=== PATIENT | female | born 1950 | race Caucasian/White ===

== ENCOUNTER → 2016-11-20 | Outpatient (CLI) | payer MEDICARE, OTHER ==
--- NOTE | 2016-11-25 12:16 | MR ---
EXAMINATION TYPE: MR brain wo/w con DATE OF EXAM: 11/20/2016 COMPARISON: Prior brain MRI 10/09/2016 from outside institution HISTORY: Malignant neoplasm of parietal lobe TECHNIQUE: Multiplanar, multisequence images of the brain and brainstem is performed without and with IV contras t, utilizing 15 mL intravenous MultiHance . FINDINGS: There is motion on the exam Diffusion weighted images demonstrate some small focal areas of restricted diffusion in the inferior margin of the tumor adjacent to the posterior horn of the right lateral ventricle with some correspon ding ring enhancement not seen on previous exam. The area of previously identified tumor in the right parietal lobe is again noted, there is some ring enhancement as on prior exam. Craniotomy flap is pr esent at this level with a small local epidural fluid collection. Some of the vasogenic edema has imp roved in the interval. There are persistent scattered hyperintensities within other areas of varying inversion recovery and T2-weighted sequences. Increased signal also noted within the maria. Within the area of treatment there is some heterogeneous internal signal present similar to prior exam. IMPRESSION: Cannot exclude some abnormal enhancement at the inferior margin of the postoperative bed as as described, compared to previous exam. Additional short interval follow-up is recommended.
== END | disposition home or self-care (01) ==
LOC: RADMRIMAIN 12:37
PROVIDERS: ATTEND Radiology Radiation Oncology
DX: C71.3 Malignant neoplasm of parietal lobe (principal); Z98.890 Other specified postprocedural states
CPT/HCPCS: 70553; A9577

== ENCOUNTER 2016-12-05 15:53 | Inpatient (IN) | payer MEDICARE ==
[2016-12-05] MEDS ORDERED: SODIUM CHLORIDE 0.9% 1,000 ML IV STA (16:32)
[2016-12-05] MEDS ORDERED: IPRATROPIUM 0.5 MG/2.5 ML NEBU INHALATION STA (16:32)
[2016-12-05] MEDS ORDERED: SODIUM CHLORIDE 0.9% 500 ML IV STA (16:32)
[2016-12-05] MEDS ORDERED: ALBUTEROL NEBULIZED 2.5 MG/3 ML INHALATION STA (16:32)
--- NOTE | 2016-12-05 16:45 | ED ---
General Adult HPI - General Chief complaint: Upper Respiratory Infection Stated complaint: Weakness, Hyperglycemia, confusion Time Seen by Provider: 12/05/16 16:15 Source: patient, family, RN/MD, RN notes reviewed Mode of arrival: wheelchair Limitations: no limitations - History of Present Illness Initial comments: 66 female with history of glioblastoma currently on chemotherapy and radiation presents from the cancer center with increasing confusion, and low oxygen level. It is unknown exactly what this level was. Patient does report cough over the past week with worsening shortness of breath. She has no formal diagnosis of COPD but has been a long-time smoker and is currently still smoking. Her daughter who is at bedside states she has had a productive cough which has been worsening over the past week. She denies any chest pain. Patient does note some confusion over the past week, But is alert and oriented 4. Denies fever or chills. Denies abdominal pain nausea or vomiting. - Related Data Allergies Allergy/AdvReac Type Severity Reaction Status Date / Time No Known Allergies Allergy Verified 12/05/16 15:59 Review of Systems ROS Statement: Those systems with pertinent positive or pertinent negative responses have been documented in the HPI. ROS Other: All systems not noted in ROS Statement are negative. Past Medical History Past Medical History: Cancer, Diabetes Mellitus, Hypertension Additional Past Medical History / Comment(s): glioblastoma History of Any Multi-Drug Resistant Organisms: None Reported Past Surgical History: Hysterectomy Additional Past Surgical History / Comment(s): blood clot removal, brain surgery Past Psychological History: Anxiety Smoking Status: Current every day smoker Past Alcohol Use History: None Reported Past Drug Use History: None Reported General Exam Limitations: no limitations General appearance: alert, in no apparent distress Head exam: Present: atraumatic, normocephalic Eye exam: Present: normal appearance, PERRL ENT exam: Present: mucous membranes dry Neck exam: Present: normal inspection Respiratory exam: Present: wheezes, prolonged expiratory. Absent: rhonchi Cardiovascular Exam: Present: regular rate, normal rhythm GI/Abdominal exam: Present: soft. Absent: distended, tenderness Extremities exam: Present: full ROM, other (Bruising to the left ankle, this appears old, there is a incision over the left calf which is clean dry and intact.). Absent: tenderness Back exam: Present: full ROM, other (Ecchymosis over the left scapula, no bony tenderness) Neurological exam: Present: alert, oriented X3, CN II-XII intact. Absent: motor sensory deficit Psychiatric exam: Present: normal affect, normal mood Skin exam: Present: warm, dry. Absent: cyanosis, diaphoretic Course Vital Signs 12/05/16 12/05/16 12/05/16 15:59 16:40 17:18 Temperature 98.7 F Pulse Rate 90 85 74 Respiratory 16 20 Rate Blood Pressure 133/63 145/78 O2 Sat by Pulse 90 L 95 Oximetry 12/05/16 12/05/16 17:23 17:35 Temperature Pulse Rate 71 78 Respiratory 20 Rate Blood Pressure 130/58 O2 Sat by Pulse 97 Oximetry - Reevaluation(s) Reevaluation #1: 12/05/16 17:47 On reevaluation, patient's vital signs remained stable, she has no new complaints EKG Findings - EKG Comments: EKG Findings:: EKG shows normal sinus rhythm with a ventricular rate 83, para 144, QRS duration 86, QTC [address] segment depression in V3, this is likely early repolarization Medical Decision Making - Medical Decision Making 66-year-old female presenting with generalized weakness, one-week history of cough which was productive. She was sent from the cancer center with low oxygen level and confusion. Patient is alert and oriented 4, no focal neurological findings. She is currently being treated for brain cancer. She was receiving radiation today. Laboratory studies and chest x-ray are obtained. Laboratory studies reveal significant abnormalities with a white blood cell count 23.8, sodium of 122, this is pseudohyponatremia, potassium of 7.0B UL of 71, creatinine of 1.5, mild lactic acidosis of 2.1 urinalysis is negative for ketones does show elevated glucose. Chest x-ray shows no focal pneumonia, there is no signs of infection on urinalysis. No DKA, acidosis likely related to uremia and lactic acidosis. Sodium is secondary to elevated blood glucose which is over 700. Patient is bolused with normal saline, started on 150 mL per hour, and started on an insulin drip. The case is discussed with Dr. Barrera the pulmonary sat act instructor, and the patient will be placed in ICU for close monitoring. Patient is given calcium gluconate, normal saline, and albuterol for her elevated potassium. Elevated white blood cell count is concerning, however there is no pneumonia or urinary tract infection no obvious sign of infection, patient is empirically given vancomycin and cefepime while in the emergency department. Diagnosis: Hyperkalemia, acute kidney injury, lactic acidosis, pseudohyponatremia, elevated white blood cell count - Lab Data Result diagrams: 12/05/16 16:38 12/05/16 16:38 Lab Results 12/05/16 12/05/16 12/05/16 Range/Units 16:38 16:38 16:38 WBC 23.8 H (3.8-10.6) k/uL RBC 5.07 (3.80-5.40) m/uL Hgb 15.4 (11.4-16.0) gm/dL Hct 46.0 (34.0-46.0) % MCV 90.6 (80.0-100.0) fL MCH 30.3 (25.0-35.0) pg MCHC 33.5 (31.0-37.0) g/dL RDW 14.6 (11.5-15.5) % Plt Count 233 (150-450) k/uL Neutrophils % 93 % Lymphocytes % 4 % Monocytes % 3 % Eosinophils % 0 % Basophils % 0 % Neutrophils # 22.1 H (1.3-7.7) k/uL Lymphocytes # 0.8 L (1.0-4.8) k/uL Monocytes # 0.7 (0-1.0) k/uL Eosinophils # 0.1 (0-0.7) k/uL Basophils # 0.0 (0-0.2) k/uL VBG pH (7.31-7.41) VBG pCO2 (37-51) mmHg VBG HCO3 (24-28) mmol/L Sodium 122 L (137-145) mmol/L Potassium 7.0 H* (3.5-5.1) mmol/L Chloride 93 L (98-107) mmol/L Carbon Dioxide 16 L (22-30) mmol/L Anion Gap 13 mmol/L BUN 71 H (7-17) mg/dL Creatinine 1.50 H (0.52-1.04) mg/dL Est GFR (MDRD) Af Amer 42 (>60 ml/min/1.73 sqM) Est GFR (MDRD) Non-Af 35 (>60 ml/min/1.73 sqM) Glucose 708 H* (74-99) mg/dL POC Glucose (mg/dL) (75-99) mg/dL POC Glu Fabrication Manager ID Plasma Lactic Acid Brian (0.7-2.0) mmol/L Calcium 10.7 H (8.4-10.2) mg/dL Magnesium 2.4 H (1.6-2.3) mg/dL Total Bilirubin 1.0 (0.2-1.3) mg/dL AST 21 (14-36) U/L ALT 57 H (9-52) U/L Alkaline Phosphatase 101 (38-126) U/L Total Creatine Kinase <20 L (30-135) U/L CK-MB (CK-2) 1.7 (0.0-2.4) ng/mL CK-MB (CK-2) Rel Index Troponin I <0.012 (0.000-0.034) ng/mL NT-Pro-B Natriuret Pep pg/mL Total Protein 7.0 (6.3-8.2) g/dL Albumin 4.3 (3.5-5.0) g/dL Urine Color Urine Appearance (Clear) Urine pH (5.0-8.0) Ur Specific [place] (1.001-1.035) Urine Protein (Negative) Urine Glucose (UA) (Negative) Urine Ketones (Negative) Urine Blood (Negative) Urine Nitrite (Negative) Urine Bilirubin (Negative) Urine Urobilinogen (<2.0) mg/dL Ur Leukocyte Esterase (Negative) 12/05/16 12/05/16 12/05/16 Range/Units 16:38 16:38 16:38 WBC (3.8-10.6) k/uL RBC (3.80-5.40) m/uL Hgb (11.4-16.0) gm/dL Hct (34.0-46.0) % MCV (80.0-100.0) fL MCH (25.0-35.0) pg MCHC (31.0-37.0) g/dL RDW (11.5-15.5) % Plt Count (150-450) k/uL Neutrophils % % Lymphocytes % % Monocytes % % Eosinophils % % Basophils % % Neutrophils # (1.3-7.7) k/uL Lymphocytes # (1.0-4.8) k/uL Monocytes # (0-1.0) k/uL Eosinophils # (0-0.7) k/uL Basophils # (0-0.2) k/uL VBG pH 7.30 L (7.31-7.41) VBG pCO2 41 (37-51) mmHg VBG HCO3 19 L (24-28) mmol/L Sodium (137-145) mmol/L Potassium (3.5-5.1) mmol/L Chloride (98-107) mmol/L Carbon Dioxide (22-30) mmol/L Anion Gap mmol/L BUN (7-17) mg/dL Creatinine (0.52-1.04) mg/dL Est GFR (MDRD) Af Amer (>60 ml/min/1.73 sqM) Est GFR (MDRD) Non-Af (>60 ml/min/1.73 sqM) Glucose (74-99) mg/dL POC Glucose (mg/dL) (75-99) mg/dL POC Glu Fabrication Manager ID Plasma Lactic Acid Brian 2.1 H* (0.7-2.0) mmol/L Calcium (8.4-10.2) mg/dL Magnesium (1.6-2.3) mg/dL Total Bilirubin (0.2-1.3) mg/dL AST (14-36) U/L ALT (9-52) U/L Alkaline Phosphatase (38-126) U/L Total Creatine Kinase (30-135) U/L CK-MB (CK-2) (0.0-2.4) ng/mL CK-MB (CK-2) Rel Index Troponin I (0.000-0.034) ng/mL NT-Pro-B Natriuret Pep 698 pg/mL Total Protein (6.3-8.2) g/dL Albumin (3.5-5.0) g/dL Urine Color Urine Appearance (Clear) Urine pH (5.0-8.0) Ur Specific [place] (1.001-1.035) Urine Protein (Negative) Urine Glucose (UA) (Negative) Urine Ketones (Negative) Urine Blood (Negative) Urine Nitrite (Negative) Urine Bilirubin (Negative) Urine Urobilinogen (<2.0) mg/dL Ur Leukocyte Esterase (Negative) 12/05/16 12/05/16 Range/Units 17:00 17:21 WBC (3.8-10.6) k/uL RBC (3.80-5.40) m/uL Hgb (11.4-16.0) gm/dL Hct (34.0-46.0) % MCV (80.0-100.0) fL MCH (25.0-35.0) pg MCHC (31.0-37.0) g/dL RDW (11.5-15.5) % Plt Count (150-450) k/uL Neutrophils % % Lymphocytes % % Monocytes % % Eosinophils % % Basophils % % Neutrophils # (1.3-7.7) k/uL Lymphocytes # (1.0-4.8) k/uL Monocytes # (0-1.0) k/uL Eosinophils # (0-0.7) k/uL Basophils # (0-0.2) k/uL VBG pH (7.31-7.41) VBG pCO2 (37-51) mmHg VBG HCO3 (24-28) mmol/L Sodium (137-145) mmol/L Potassium (3.5-5.1) mmol/L Chloride (98-107) mmol/L Carbon Dioxide (22-30) mmol/L Anion Gap mmol/L BUN (7-17) mg/dL Creatinine (0.52-1.04) mg/dL Est GFR (MDRD) Af Amer (>60 ml/min/1.73 sqM) Est GFR (MDRD) Non-Af (>60 ml/min/1.73 sqM) Glucose (74-99) mg/dL POC Glucose (mg/dL) >600 H (75-99) mg/dL POC Glu Fabrication Manager ID Torri Sanon Plasma Lactic Acid Brian (0.7-2.0) mmol/L Calcium (8.4-10.2) mg/dL Magnesium (1.6-2.3) mg/dL Total Bilirubin (0.2-1.3) mg/dL AST (14-36) U/L ALT (9-52) U/L Alkaline Phosphatase (38-126) U/L Total Creatine Kinase (30-135) U/L CK-MB (CK-2) (0.0-2.4) ng/mL CK-MB (CK-2) Rel Index Troponin I (0.000-0.034) ng/mL NT-Pro-B Natriuret Pep pg/mL Total Protein (6.3-8.2) g/dL Albumin (3.5-5.0) g/dL Urine Color Light Yellow Urine Appearance Clear (Clear) Urine pH 5.0 (5.0-8.0) Ur Specific [place] 1.020 (1.001-1.035) Urine Protein Negative (Negative) Urine Glucose (UA) 4+ H (Negative) Urine Ketones Negative (Negative) Urine Blood Negative (Negative) Urine Nitrite Negative (Negative) Urine Bilirubin Negative (Negative) Urine Urobilinogen <2.0 (<2.0) mg/dL Ur Leukocyte Esterase Negative (Negative) Critical Care Time Critical Care Time: Yes Total Critical Care Time: 35 Disposition Clinical Impression: Hyperkalemia, Acute kidney injury, Dehydration, Hyperglycemia Disposition: ADMITTED IP TO THIS [facility] Condition: Serious Referrals: None,Stated [Primary Care Provider] - 1-2 days Decision to Admit Reason: Admit from EC Decision Date: 12/05/16 Decision Time: 17:51
[2016-12-05 16:49] LABS: Basophils % (A) 0 %; CH 29.5; CHCM 32.6; Eosinophils # (A) 0.1 k/uL (0-0.7); Eosinophils % (A) 0 %; HGB 15.4 gm/dL (11.4-16.0); Luc # (Auto) 0.08; Luc % (Auto) 0; Lymphocytes # (A) 0.8 k/uL (1.0-4.8); Lymphocytes % (A) 4 %; MCH 30.3 pg (25.0-35.0); MCHC 33.5 g/dL (31.0-37.0); MCV 90.6 fL (80.0-100.0); Mean Platelet Volume 8.2; Monocytes # (A) 0.7 k/uL (0-1.0); Monocytes % (A) 3 %; Neutrophils # (A) 22.1 k/uL (1.3-7.7); Neutrophils % (A) 93 %; RBC 5.07 m/uL (3.80-5.40); RDW 14.6 % (11.5-15.5); VBG PH 7.3 (7.31-7.41); WBC 23.8 k/uL (3.8-10.6); WBC (Perox) 23.35
[2016-12-05 17:04] LABS: Calcium 10.7 mg/dL (8.4-10.2); Magnesium 2.4 mg/dL (1.6-2.3)
[2016-12-05 17:16] LABS: Creatine Kinase <20 U/L (30-135)
[2016-12-05] MEDS ORDERED: CALCIUM GLUCONATE 1,000 MG in SODIUM CHLORIDE 0.9% 100 ML IVPB ONE (17:17)
[2016-12-05] MEDS ORDERED: SODIUM CHLORIDE 0.9% 1,000 ML IV ONE (17:18)
[2016-12-05 17:21] LABS: Appearance,Urine Clear (Clear); Bilirubin,Urine Negative (Negative); Glucose,Urine (UA) 4+ (Negative); Ketones,Urine Negative (Negative); Leukocyte Esterase,Urine Negative (Negative); Nitrite,Urine Negative (Negative); Protein,Urine Negative (Negative); UA Billing (MACRO vs. MICRO) CHEM; Urobilinogen,Urine <2.0 mg/dL (<2.0)
--- NOTE | 2016-12-05 17:21 | XR ---
EXAMINATION TYPE: XR chest 2V DATE OF EXAM: 12/05/2016 COMPARISON: NONE HISTORY: Short of breath and weakness TECHNIQUE: Frontal and lateral views of the chest are obtained. FINDINGS: Heart and mediastinum are normal. Lungs are clear. Diaphragm is normal. Bony thorax is int act. There are chest leads. IMPRESSION: Normal chest
[2016-12-05 17:22] LABS: Glucose,Whole Blood >600 mg/dL (75-99)
[2016-12-05 17:27] LABS: Creatine Kinase MB 1.7 ng/mL (0.0-2.4); Troponin I <0.012 ng/mL (0.000-0.034)
[2016-12-05] MEDS ORDERED: VANCOMYCIN 1,000 MG in SODIUM CHLORIDE 0.9% 250 ML IVPB STA (17:28)
[2016-12-05] MEDS ORDERED: CEFEPIME 2 GM in SODIUM CHLORIDE 0.9% 50 ML IVPB STA (17:28)
[2016-12-05] MEDS: INSULIN REGULAR 100 UNIT in SODIUM CHLORIDE 0.9% 100 ML IV SCH (17:58)
[2016-12-05 18:01] LABS: INR 1.1 (<1.2); Prothrombin Time 11.1 sec (9.0-12.0)
[2016-12-05 18:06] LABS: Partial Thromboplastin Time 21.3 sec (22.0-30.0)
[2016-12-05 18:26] LABS: Glucose,Whole Blood 574 mg/dL (75-99)
[2016-12-05 19:01] LABS: Glucose,Whole Blood 490 mg/dL (75-99)
[2016-12-05 20:24] LABS: Glucose,Whole Blood 464 mg/dL (75-99)
[2016-12-05] MEDS: SODIUM CHLORIDE 0.9% 1,000 ML IV SCH (20:25)
[2016-12-05] MEDS: IPRATROPIUM-ALBUTEROL 3 ML NEB INHALATION SCH (20:46)
[2016-12-05 21:03] LABS: Potassium 5.6 mmol/L (3.5-5.1)
[2016-12-05] MEDS ORDERED: IV VANCOMYCIN PER PHARMACY 1 EACH MISC MISCELLANE PRN (21:33)
[2016-12-05 23:07] LABS: Glucose,Whole Blood 252 mg/dL (75-99)
--- NOTE | 2016-12-05 23:34 | CT ---
EXAM: CT Chest Without Intravenous Contrast CLINICAL HISTORY: Reason: pneumonia TECHNIQUE: Axial computed tomography images of the chest without intravenous contrast. CTDIvol is 9.10 mGy and DLP is 334.5 mGy-cm. This CT exam was performed using one or more of the following dose reduction techniques: automated exposure control, adjustment of the mA and/or kV according to patient size, and/or use of iterative reconstruction technique. COMPARISON: Chest x-ray 12/05/2016 at 1652 hrs. FINDINGS: Lungs: Lungs are clear of focal infiltrates or consolidations. Mild right base subsegmental atelectasis or scarring.. No pulmonary mass or consolidation. Pleural space: No pneumothorax. No evidence of pleural effusion. Heart: Coronary artery calcifications. No significant pericardial effusion. Bones/joints: Mild degenerative changes in the thoracic spine. No evidence of thoracic vertebral compression fracture. Soft tissues: Unremarkable. Vasculature: Atherosclerotic calcification of the thoracic aorta without thoracic aortic aneurysm. Lymph nodes: No pathologically enlarged lymphadenopathy. Gallbladder: Dense layering material in the gallbladder consistent with sludge or small gallstones. IMPRESSION: No evidence of active chest disease. No evidence of pneumonia. Gallbladder sludge or small gallstones.
[2016-12-06 00:27] LABS: Glucose,Whole Blood 190 mg/dL (75-99)
[2016-12-06] MEDS: IPRATROPIUM-ALBUTEROL 3 ML NEB INHALATION SCH ×6 (00:36→19:53)
[2016-12-06 00:57] LABS: Anion Gap 9 mmol/L; Blood Urea Nitrogen 59 mg/dL (7-17); Carbon Dioxide 14 mmol/L (22-30); Chloride 107 mmol/L (98-107); Glucose 202 mg/dL (74-99); Non-African American GFR(MDRD) 55 (>60 ml/min/1.73 sqM); Potassium 5.4 mmol/L (3.5-5.1); Sodium 130 mmol/L (137-145)
[2016-12-06 01:28] LABS: Glucose,Whole Blood 156 mg/dL (75-99)
[2016-12-06] MEDS ORDERED: NALOXONE 0.4 MG/ML 1 ML VIAL IV PRN (02:08)
[2016-12-06 02:36] LABS: Glucose,Whole Blood 110 mg/dL (75-99)
[2016-12-06 03:46] LABS: Glucose,Whole Blood 79 mg/dL (75-99)
[2016-12-06 04:41] LABS: Glucose,Whole Blood 94 mg/dL (75-99)
[2016-12-06 05:13] LABS: ALT 44 U/L (9-52); AST 36 U/L (14-36); Alkaline Phosphatase 59 U/L (38-126); Anion Gap 8 mmol/L; Blood Urea Nitrogen 52 mg/dL (7-17); Calcium 10.2 mg/dL (8.4-10.2); Carbon Dioxide 14 mmol/L (22-30); Chloride 107 mmol/L (98-107); Cholesterol 149 mg/dL (<200); Glucose 84 mg/dL (74-99); HDL Cholesterol 25 mg/dL (40-60); Magnesium 2.2 mg/dL (1.6-2.3); Non-African American GFR(MDRD) >60 (>60 ml/min/1.73 sqM); Sodium 129 mmol/L (137-145); Total Protein 6.5 g/dL (6.3-8.2)
[2016-12-06 05:14] LABS: Basophils % (A) 0 %; CH 30.8; CHCM 35.4; Eosinophils % (A) 0 %; HCT 41.8 % (34.0-46.0); HDW 3.18; HGB 14.3 gm/dL (11.4-16.0); Luc # (Auto) 0.15; Luc % (Auto) 1; Lymphocytes # (A) 1.9 k/uL (1.0-4.8); Lymphocytes % (A) 9 %; MCH 29.8 pg (25.0-35.0); MCHC 34.2 g/dL (31.0-37.0); MCV 87.4 fL (80.0-100.0); Mean Platelet Volume 9.1; Monocytes # (A) 1.2 k/uL (0-1.0); Monocytes % (A) 6 %; Neutrophils # (A) 18.8 k/uL (1.3-7.7); Neutrophils % (A) 85 %; RBC 4.79 m/uL (3.80-5.40); RDW 15.6 % (11.5-15.5); WBC 22.1 k/uL (3.8-10.6); WBC (Perox) 21.36
[2016-12-06 05:25] LABS: Glucose,Whole Blood 137 mg/dL (75-99)
[2016-12-06 05:27] LABS: Potassium 6.6 mmol/L (3.5-5.1)
[2016-12-06] MEDS: INSULIN REGULAR 100 UNIT in SODIUM CHLORIDE 0.9% 100 ML IV SCH (05:27)
[2016-12-06] MEDS: SODIUM CHLORIDE 0.9% 1,000 ML IV SCH ×4 (05:28→18:05)
[2016-12-06] MEDS ORDERED: CEFEPIME 2 GM in SODIUM CHLORIDE 0.9% 50 ML IVPB SCH (06:00)
[2016-12-06 06:38] LABS: Glucose,Whole Blood 141 mg/dL (75-99)
[2016-12-06] MEDS ORDERED: CALCIUM GLUCONATE 2,000 MG in SODIUM CHLORIDE 0.9% 100 ML IVPB ONE (06:54)
[2016-12-06] MEDS ORDERED: ALBUTEROL NEBULIZED 2.5 MG/3 ML INHALATION STA (06:56)
[2016-12-06] MEDS ORDERED: VANCOMYCIN 1,250 MG in SODIUM CHLORIDE 0.9% 250 ML IVPB SCH ×2 (07:00→23:00)
[2016-12-06 07:05] LABS: Glucose,Whole Blood 130 mg/dL (75-99)
--- NOTE | 2016-12-06 07:57 | XR ---
EXAMINATION TYPE: XR chest 1V DATE OF EXAM: 12/06/2016 COMPARISON: 12/05/2016 HISTORY: Shortness of breath TECHNIQUE: Single frontal view of the chest is obtained. FINDINGS: There is no focal air space opacity, pleural effusion, or pneumothorax seen. The cardiac silhouette size is within normal limits. The osseous structures are intact. Right cardiophrenic ang le mass is related to prominent fat pad on recent CT. Arthropathy shoulders IMPRESSION: No acute process.
[2016-12-06 08:17] LABS: Glucose,Whole Blood 122 mg/dL (75-99)
[2016-12-06] MEDS: HEPARIN SODIUM,PORCINE 5,000 UNIT/ML 1 ML VIAL SQ SCH ×2 (08:47→15:06)
[2016-12-06] MEDS: amLODIPine 5 MG TAB PO SCH (08:48)
[2016-12-06] MEDS: ASPIRIN 81 MG PO SCH (08:48)
[2016-12-06] MEDS: CYANOCOBALAMIN 500 MCG TAB PO SCH (08:48)
[2016-12-06] MEDS: DEXAMETHASONE 4 MG TAB PO SCH (08:48)
[2016-12-06] MEDS: CITALOPRAM HYDROBROMIDE 20 MG TAB PO SCH (08:48)
[2016-12-06] MEDS: PANTOPRAZOLE 40 MG TABLET PO SCH (08:48)
[2016-12-06 09:09] LABS: Glucose,Whole Blood 176 mg/dL (75-99)
[2016-12-06 10:07] LABS: Glucose,Whole Blood 240 mg/dL (75-99)
[2016-12-06 11:20] LABS: Glucose,Whole Blood 242 mg/dL (75-99)
[2016-12-06 12:01] LABS: Glucose,Whole Blood 269 mg/dL (75-99)
[2016-12-06 13:23] LABS: Glucose,Whole Blood 337 mg/dL (75-99)
[2016-12-06] MEDS ORDERED: SODIUM POLYSTYRENE SULFONATE 15 GM/60 ML BOTTLE PO STA (13:57)
[2016-12-06 14:21] LABS: Hemoglobin A1C 9.4 % (4.2-6.1)
[2016-12-06 14:27] LABS: Glucose,Whole Blood 355 mg/dL (75-99)
[2016-12-06 15:00] LABS: Glucose,Whole Blood 300 mg/dL (75-99)
--- NOTE | 2016-12-06 15:49 | HP ---
HISTORY AND PHYSICAL ADMISSION DATE: 12/05/16 CHIEF COMPLAINT: 66-year-old, white female, who recently had a glioblastoma surgery on chemotherapy and radiation with increased confusion and low oxygen level. She became short of breath over the last week and required oxygen of unclear etiology. Her oxygen level was low. She was started on home oxygen and Cipro by physician and insulin was doubled at home. Due to increase confusion she has came to the hospital and found to have possible sepsis from unclear etiology. Severe hyperkalemia and acute on chronic renal insufficiency. Severe dehydration. ALLERGIES: No known drug allergies. She was empirically started on vancomycin and cefepime which will be continued and source of the sepsis will be ruled out. REVIEW OF SYSTEMS: Fourteen point review of systems negative except for mentioned in HPI. PAST HISTORY: Cancer, diabetes mellitus, hypertension, glioblastoma, surgery blood clot removal, brain surgery and hysterectomy. SOCIAL HISTORY: Current everyday smoker. Anxiety. No alcohol PHYSICAL EXAM: She is alert and oriented x3. She has good eye contact. Neurologic: She appears to be moving all 4 extremities. Ophthalmological: Pupils equal, round and reactive to light and accommodation. ENT external ear exam is within normal limits. CARDIOVASCULAR: Regular rate and rhythm. GI: Soft, nontender. Extremities full range of motion. Back full range of motion. NEUROLOGIC: Alert and oriented x3. Psych fair mood and affect. SKIN: Warm and dry. O2 saturation 90 to 95%. Blood pressures 130 to 140s over 60s to 70s. Respiratory rate 16 to 20, pulse is 75 to 90, temp 98.7. EKG shows sinus rhythm. Chest x-ray is unremarkable. ASSESSMENT: 1. 66-year-old, white female, who apparently has had recent glioblastoma surgery with acute hypoxemia of unclear etiology. CT scan of the chest was ordered without contrast. 2. Confusion secondary to hyperkalemia and hyponatremia due to severe significant dehydration. 3. Mild lactic acidosis. 4. Uncontrolled diabetes mellitus. 5. Nonketotic hyperosmolar coma. PLAN: Continue with insulin drip. Calcium gluconate. Normal saline. Albuterol. Elevated potassium. Elevated white count is unclear. Empiric vancomycin and cefepime. Blood cultures were drawn. CT of the chest is going to be drawn also. Patient does have significant pulmonary symptoms that are worsening recently of unclear etiology. CT of the chest will need to be done. ICU time 60 minutes. MMODL / IJN: [id number] /
[2016-12-06 16:02] LABS: Glucose,Whole Blood 305 mg/dL (75-99)
[2016-12-06 16:11] LABS: Glucose,Whole Blood 300 mg/dL (75-99)
[2016-12-06] MEDS: TEMOZOLOMIDE 140 MG PO SCH (16:11)
[2016-12-06 16:52] LABS: Glucose,Whole Blood 297 mg/dL (75-99)
[2016-12-06] MEDS: INSULIN LISPRO (humaLOG) 300 UNIT/3 ML VIAL SQ SCH ×3 (17:34→21:23)
--- NOTE | 2016-12-06 17:45 | P.CNPUL ---
History of Present Illness Consult date: 12/06/16 Chief complaint: Acute hyperglycemia History of present illness: This is a 66-year-old female patient, very pleasant, who got recently diagnosed having glioblastoma multiforme he. The patient underwent craniotomy with subtotal resection of the tumor and a Hospital in [facility]. Subsequently she came in to [place] and currently she is seeing radiation oncology. [facility] and Dr. Londono from medical oncology. The patient was started radiation therapy and she has received a single session. She was also started on Temador . The patient was also on systemic steroids and she was on higher dose of Decadron and currently she is down to 4 mg on a daily basis. This patient is diabetic and she was using Levemir insulin which she stopped taking because of the high cost. Currently she is taking Humalog 40 units in the morning and 20 units in the evening. She is noted the blood sugars to be quite high and there has been progressive rise in the blood sugars. She was having increased urination and she came in quite dehydrated. She presented emergency department and she was found to be profoundly hyperglycemic and her initial blood sugar was 708. She was in a hyperosmolar nonketotic state. She was started on an insulin drip. She was started on fluid resuscitation and she received aggressive fluid resuscitation more than 3 L of IV fluids. Her creatinine at a time of admission was 1. is currently down to 0.9. She did have also a component of hyperkalemia, and her potassium level was at 7.0. She received calcium gluconate. She received albuterol treatments and insulin. Subsequent potassium level from this morning is down to 5.7. No EKG changes this morning. No cough. No sputum production. No chest tightness. No wheezing. No nausea. No vomiting. No emesis. No skin rashes. No falls. Following her surgery she has experienced some left- sided weakness which is attributed to her craniotomy. CAT scan of the chest was done without contrast and essentially within normal limits. The chest x- ray shows no acute cardiopulmonary process. The urinalysis is negative. The blood sugars under better control and most recent blood sugar is below 200. The patient's lactic acid level is also down to 1.3. Review of Systems Constitutional: Reports fatigue, Reports lethargy, Reports weakness Eyes: denies blurred vision, denies bulging eye, denies decreased vision Ears: deny: decreased hearing, ear discharge, earache Ears, nose, mouth and throat: Denies headache, Denies sore throat Cardiovascular: Denies chest pain, Denies shortness of breath Respiratory: Denies cough Gastrointestinal: Denies abdominal pain, Denies diarrhea, Denies nausea, Denies vomiting Genitourinary: Denies dysuria, Denies hematuria Musculoskeletal: Denies myalgias Musculoskeletal: absent: ankle pain, ankle stiffness, ankle swelling Integumentary: Denies pruritus, Denies rash Neurological: Reports weakness Psychiatric: Denies anxiety, Denies depression Past Medical History Past Medical History: Cancer, Diabetes Mellitus, Hypertension Additional Past Medical History / Comment(s): glioblastoma diagnosed September 2016. History of Any Multi-Drug Resistant Organisms: None Reported Past Surgical History: Hysterectomy Additional Past Surgical History / Comment(s): blood clot removal from left leg October 2016. brain surgery October 09 2016 Past Anesthesia/Blood Transfusion Reactions: No Reported Reaction Past Psychological History: Anxiety Smoking Status: Never smoker Past Alcohol Use History: None Reported Past Drug Use History: None Reported Medications and Allergies Home Medications Medication Instructions Recorded Confirmed Type ALPRAZolam [Xanax] 0.5 mg PO Q8HR PRN 12/05/16 12/05/16 History Acetaminophen [Tylenol] 650 mg PO QID PRN 12/05/16 12/05/16 History Aspirin [Adult Low Dose Aspirin EC] 81 mg PO DAILY 12/05/16 12/05/16 History Atorvastatin [Lipitor] 20 mg PO HS 12/05/16 12/05/16 History Citalopram Hydrobromide [CeleXA] 20 mg PO DAILY 12/05/16 12/05/16 History Cyanocobalamin [Vitamin B-12] 500 mcg PO DAILY 12/05/16 12/05/16 History Dexamethasone 4 mg PO DAILY 12/05/16 12/05/16 History Hydrocodone/Acetaminophen [[place] 1 tab PO Q4H PRN 12/05/16 12/05/16 History 7.5-325] Insulin Lispro [Humalog] 20 unit SQ HS 12/05/16 12/05/16 History Insulin Lispro [Humalog] 40 unit SQ DAILY 12/05/16 12/05/16 History Pantoprazole [Protonix] 40 mg PO DAILY 12/05/16 12/05/16 History Sulfamethoxazole/Trimethoprim 1 tab PO DIRECTED 12/05/16 12/05/16 History [Bactrim DS 800-160 mg] Temozolomide [Temodar] 140 mg PO DAILY 12/05/16 12/05/16 History Thyroid,Pork [[place] Thyroid] 60 mg PO DAILY 12/05/16 12/05/16 History Valsartan 240 mg PO DAILY 12/05/16 12/05/16 History amLODIPine [Norvasc] 5 mg PO DAILY 12/05/16 12/05/16 History Allergies Allergy/AdvReac Type Severity Reaction Status Date / Time No Known Allergies Allergy Verified 12/05/16 15:59 Physical Exam Vitals: Vital Signs Temp Pulse Resp BP Pulse Ox 12/06/16 16:03 76 12/06/16 16:00 98.1 F 77 15 131/56 100 12/06/16 15:53 75 12/06/16 15:00 79 16 128/67 93 L 12/06/16 14:00 82 20 139/49 95 12/06/16 13:00 92 21 130/42 97 12/06/16 12:00 98.6 F 97 19 137/49 98 12/06/16 11:00 91 14 140/48 97 12/06/16 10:00 85 14 159/50 97 12/06/16 09:24 82 12/06/16 09:00 76 15 156/78 98 12/06/16 08:58 75 12/06/16 08:00 97.9 F 64 14 145/59 97 12/06/16 07:00 62 20 146/68 96 12/06/16 06:00 70 16 147/52 93 L 12/06/16 05:00 59 L 18 131/61 93 L 12/06/16 04:00 97.6 F 55 L 16 116/49 95 12/06/16 03:00 54 L 14 121/52 95 12/06/16 02:00 56 L 16 131/49 96 12/06/16 01:00 70 20 131/54 94 L 12/06/16 00:00 97.5 F L 55 L 22 110/46 93 L 12/05/16 23:00 59 L 20 129/49 92 L 12/05/16 22:00 94 18 104/45 99 12/05/16 21:00 61 26 H 115/46 97 12/05/16 20:59 73 12/05/16 20:46 71 12/05/16 20:00 97.6 F 66 22 113/59 99 12/05/16 19:18 73 113/59 98 12/05/16 19:10 97.6 F 87 16 113/59 97 12/05/16 18:26 97.4 F L 72 18 125/58 95 12/05/16 17:41 68 18 126/57 94 L 12/05/16 17:35 78 Intake and Output 12/06/16 12/06/16 12/06/16 06:59 14:59 22:59 Intake Total 6860.742 3652.810 610.452 Output Total 400 1300 400 Balance 848.630 659.810 210.452 Intake: IV 1200 1350 300 Calcium Gluconate 1,000 100 mg In Sodium Chloride 0.9 % 100 ml @ 100 mls/hr IVPB ONCE ONE Rx#: [id number] Sodium Chloride 0.9% 1, 1200 1000 300 000 ml @ 150 mls/hr IV . Q6H40M [facility] Rx#:[id number] Vancomycin 1,250 mg In 250 Sodium Chloride 0.9% 250 ml @ 125 mls/hr IVPB Q16H [facility] Rx#:[id number] Intake, IV Titration 48.630 9.810 10.452 Amount Insulin Regular 100 unit 48.630 9.810 10.452 In Sodium Chloride 0.9% 100 ml @ 0.1 UNITS/KG/HR 7.28 mls/hr IV .[id number] [facility] Rx#:[id number] Oral 300 Tube Feeding 250 Blood Product 350 Output: Urine 400 1300 400 Other: Voiding Method Bedpan Bedpan Bedpan Weight 67.9 kg 67.9 kg Patient Weight 12/07/16 06:59 Weight 67.9 kg The patient appeared well nourished and normally developed. Vital signs as documented. Head exam is unremarkable. No scleral icterus or corneal arcus noted. Neck is without jugular venous distension, thyromegaly, or carotid bruits. Carotid upstrokes are brisk bilaterally. Lungs are clear to auscultation and percussion. Cardiac exam reveals the PMI to be normally sized and situated. Rhythm is regular. First and second heart sounds normal. No murmurs, rubs or gallops. Abdominal exam reveals normal bowel sounds, no masses , no organomegaly and no aortic enlargement. Extremities are nonedematous and both femoral and pedal pulses are normal. Results - Laboratory Findings CBC and BMP: 12/06/16 04:21 12/06/16 10:54 PT/INR, D-dimer PT 11.1 sec (9.0-12.0) 12/05/16 16:38 INR 1.1 (<1.2) 12/05/16 16:38 Abnormal lab findings: Abnormal Labs 12/05/16 12/05/16 12/05/16 16:38 16:38 16:38 WBC 23.8 H RDW Plt Count Neutrophils # 22.1 H Lymphocytes # 0.8 L Monocytes # APTT VBG pH VBG HCO3 Sodium 122 L Potassium 7.0 H* Chloride 93 L Carbon Dioxide 16 L BUN 71 H Creatinine 1.50 H Glucose 708 H* POC Glucose (mg/dL) Hemoglobin A1c Plasma Lactic Acid Brian Calcium 10.7 H Magnesium 2.4 H ALT 57 H Total Creatine Kinase <20 L Triglycerides HDL Cholesterol TSH Urine Glucose (UA) 12/05/16 12/05/16 12/05/16 16:38 16:38 16:38 WBC RDW Plt Count Neutrophils # Lymphocytes # Monocytes # APTT 21.3 L VBG pH 7.30 L VBG HCO3 19 L Sodium Potassium Chloride Carbon Dioxide BUN Creatinine Glucose POC Glucose (mg/dL) Hemoglobin A1c Plasma Lactic Acid Brian 2.1 H* Calcium Magnesium ALT Total Creatine Kinase Triglycerides HDL Cholesterol TSH Urine Glucose (UA) 12/05/16 12/05/16 12/05/16 16:38 17:00 17:21 WBC RDW Plt Count Neutrophils # Lymphocytes # Monocytes # APTT VBG pH VBG HCO3 Sodium Potassium Chloride Carbon Dioxide BUN Creatinine Glucose POC Glucose (mg/dL) >600 H Hemoglobin A1c 9.4 H Plasma Lactic Acid Brian Calcium Magnesium ALT Total Creatine Kinase Triglycerides HDL Cholesterol TSH Urine Glucose (UA) 4+ H 12/05/16 12/05/16 12/05/16 18:24 18:58 20:10 WBC RDW Plt Count Neutrophils # Lymphocytes # Monocytes # APTT VBG pH VBG HCO3 Sodium 127 L Potassium 5.6 H Chloride Carbon Dioxide 12 L BUN 64 H Creatinine 1.20 H Glucose 479 H* POC Glucose (mg/dL) 574 H 490 H Hemoglobin A1c Plasma Lactic Acid Brian Calcium Magnesium ALT Total Creatine Kinase Triglycerides HDL Cholesterol TSH Urine Glucose (UA) 12/05/16 12/05/16 12/05/16 20:21 20:25 23:04 WBC RDW Plt Count Neutrophils # Lymphocytes # Monocytes # APTT VBG pH VBG HCO3 Sodium Potassium Chloride Carbon Dioxide BUN Creatinine Glucose POC Glucose (mg/dL) 464 H 252 H Hemoglobin A1c Plasma Lactic Acid Brian 2.3 H* Calcium Magnesium ALT Total Creatine Kinase Triglycerides HDL Cholesterol TSH Urine Glucose (UA) 12/06/16 12/06/16 12/06/16 00:17 00:25 01:25 WBC RDW Plt Count Neutrophils # Lymphocytes # Monocytes # APTT VBG pH VBG HCO3 Sodium 130 L Potassium 5.4 H Chloride Carbon Dioxide 14 L BUN 59 H Creatinine Glucose 202 H POC Glucose (mg/dL) 190 H 156 H Hemoglobin A1c Plasma Lactic Acid Brian Calcium Magnesium ALT Total Creatine Kinase Triglycerides HDL Cholesterol TSH Urine Glucose (UA) 12/06/16 12/06/16 12/06/16 02:21 04:21 04:21 WBC 22.1 H RDW 15.6 H Plt Count 122 L Neutrophils # 18.8 H Lymphocytes # Monocytes # 1.2 H APTT VBG pH VBG HCO3 Sodium 129 L Potassium 6.6 H* Chloride Carbon Dioxide 14 L BUN 52 H Creatinine Glucose POC Glucose (mg/dL) 110 H Hemoglobin A1c Plasma Lactic Acid Brian Calcium Magnesium ALT Total Creatine Kinase Triglycerides 354 H HDL Cholesterol 25 L TSH 0.090 L Urine Glucose (UA) 12/06/16 12/06/16 12/06/16 05:22 06:35 07:04 WBC RDW Plt Count Neutrophils # Lymphocytes # Monocytes # APTT VBG pH VBG HCO3 Sodium Potassium Chloride Carbon Dioxide BUN Creatinine Glucose POC Glucose (mg/dL) 137 H 141 H 130 H Hemoglobin A1c Plasma Lactic Acid Brian Calcium Magnesium ALT Total Creatine Kinase Triglycerides HDL Cholesterol TSH Urine Glucose (UA) 12/06/16 12/06/16 12/06/16 08:15 09:07 10:04 WBC RDW Plt Count Neutrophils # Lymphocytes # Monocytes # APTT VBG pH VBG HCO3 Sodium Potassium Chloride Carbon Dioxide BUN Creatinine Glucose POC Glucose (mg/dL) 122 H 176 H 240 H Hemoglobin A1c Plasma Lactic Acid Brian Calcium Magnesium ALT Total Creatine Kinase Triglycerides HDL Cholesterol TSH Urine Glucose (UA) 12/06/16 12/06/16 12/06/16 10:54 11:17 11:59 WBC RDW Plt Count Neutrophils # Lymphocytes # Monocytes # APTT VBG pH VBG HCO3 Sodium Potassium 5.7 H Chloride Carbon Dioxide BUN Creatinine Glucose POC Glucose (mg/dL) 242 H 269 H Hemoglobin A1c Plasma Lactic Acid Brian Calcium Magnesium ALT Total Creatine Kinase Triglycerides HDL Cholesterol TSH Urine Glucose (UA) 12/06/16 12/06/16 12/06/16 13:21 14:24 14:59 WBC RDW Plt Count Neutrophils # Lymphocytes # Monocytes # APTT VBG pH VBG HCO3 Sodium Potassium Chloride Carbon Dioxide BUN Creatinine Glucose POC Glucose (mg/dL) 337 H 355 H 300 H Hemoglobin A1c Plasma Lactic Acid Brian Calcium Magnesium ALT Total Creatine Kinase Triglycerides HDL Cholesterol TSH Urine Glucose (UA) 12/06/16 12/06/16 12/06/16 16:00 16:09 16:50 WBC RDW Plt Count Neutrophils # Lymphocytes # Monocytes # APTT VBG pH VBG HCO3 Sodium Potassium Chloride Carbon Dioxide BUN Creatinine Glucose POC Glucose (mg/dL) 305 H 300 H 297 H Hemoglobin A1c Plasma Lactic Acid Brian Calcium Magnesium ALT Total Creatine Kinase Triglycerides HDL Cholesterol TSH Urine Glucose (UA) - Diagnostic Findings Chest x-ray: image reviewed CT scan - chest: image reviewed Assessment and Plan Plan: Assessment 1 acute hyperosmolar nonketotic state with profound hyperglycemia, probably exacerbated by chronic intake of systemic steroids and suboptimal insulin therapy as the patient had to discontinue Levemir insulin for financial reasons. Currently on insulin drip. Patient is was resuscitated IV fluids. 2 glioblastoma multiforme status post craniotomy, currently on chemotherapy and radiation therapy. 3 acute hyperkalemia, improving and the potassium level is down to 5.7 4 metabolic acidosis secondary to above 5 hypertension 6 left lower extremities hematoma/evacuated surgically. 7 leukocytosis which is likely reactive in nature Plan Continue the insulin drip. Switch this patient later on to long-acting Lantus and this was started the dose of 10 units and the patient will be given Humalog 10 units with meals and at bedtime. She'll be also covered with a sliding scale coverage. This which will be done this evening. Also, we'll provide the patient diabetic diet. We'll monitor blood sugars. Continue oral Decadron for now. May need to stop the antibiotics did no signs of infection or sepsis. Resume outpatient medications. Consult oncology. We'll continue to follow. The patient was also given 30 g of Kayexalate in regards to her hyperkalemia. Monitor the potassium level. Moved out of the intensive care unit once more stable.
[2016-12-06] MEDS: INSULIN GLARGINE 100 UNIT/ML 10 ML VIAL SQ SCH ×2 (18:02→19:05)
[2016-12-06] MEDS ORDERED: IPRATROPIUM-ALBUTEROL 3 ML NEB INHALATION PRN (20:13)
--- NOTE | 2016-12-06 20:18 | P.CONS ---
History of Present Illness - Reason for Consult Consult date: 12/06/16 Glioblastoma multiforme, currently on chemoradiation. Mental status change - History of Present Illness The patient is 66-year-old lady, known poor service. She is followed by Dr. Londono in the outpatient setting. The patient has a recent diagnosis of glioblastoma multiforme of the right parietal lobe. She is status post gross total resection. She started adjuvant treatment with chemoradiation concurrently, one week ago. She is receiving oral Temodar, as the chemo arm. The patient was noted to be quite confused, with decreasing responsiveness, lethargy and confusion, when in radiation. Oxygen level was found to be low. She was therefore brought into the emergency room, and then admitted. Blood sugar was found to be quite high, in the 700 range. Labs however did not indicate DKA. WBC was elevated in the low 20,000 range, with mostly neutrophils noted. The patient was admitted to the ICU on broad-spectrum antibiotics. She was started on hydration as well as insulin. Mental status has improved significantly, with the hydration and decrease in blood sugar. Consult was placed for further evaluation and recommendations Review of Systems Constitutional: Reports fatigue, Reports lethargy, Reports weakness Eyes: denies blurred vision, denies pain Ears: deny: decreased hearing, ear discharge, earache, tinnitus Ears, nose, mouth and throat: Denies headache, Denies sore throat Cardiovascular: Denies chest pain, Denies shortness of breath Respiratory: Denies cough Gastrointestinal: Denies abdominal pain, Denies diarrhea, Denies nausea, Denies vomiting Genitourinary: Reports urinary frequency Menstruation: Reports postmenopausal Musculoskeletal: Reports muscle weakness Integumentary: Denies pruritus, Denies rash Neurological: Reports as per HPI, Reports change in mentation, Reports change in speech, Reports confusion, Reports weakness Psychiatric: Reports confusion Endocrine: Reports fatigue, Reports high blood sugars Hematologic/Lymphatic: Reports as per HPI Past Medical History Past Medical History: Cancer, Diabetes Mellitus, Hypertension Additional Past Medical History / Comment(s): glioblastoma diagnosed September 2016. History of Any Multi-Drug Resistant Organisms: None Reported Past Surgical History: Hysterectomy Additional Past Surgical History / Comment(s): blood clot removal from left leg October 2016. brain surgery October 09 2016 Past Anesthesia/Blood Transfusion Reactions: No Reported Reaction Past Psychological History: Anxiety Smoking Status: Never smoker Past Alcohol Use History: None Reported Past Drug Use History: None Reported Medications and Allergies Home Medications Medication Instructions Recorded Confirmed Type ALPRAZolam [Xanax] 0.5 mg PO Q8HR PRN 12/05/16 12/05/16 History Acetaminophen [Tylenol] 650 mg PO QID PRN 12/05/16 12/05/16 History Aspirin [Adult Low Dose Aspirin EC] 81 mg PO DAILY 12/05/16 12/05/16 History Atorvastatin [Lipitor] 20 mg PO HS 12/05/16 12/05/16 History Citalopram Hydrobromide [CeleXA] 20 mg PO DAILY 12/05/16 12/05/16 History Cyanocobalamin [Vitamin B-12] 500 mcg PO DAILY 12/05/16 12/05/16 History Dexamethasone 4 mg PO DAILY 12/05/16 12/05/16 History Hydrocodone/Acetaminophen [[place] 1 tab PO Q4H PRN 12/05/16 12/05/16 History 7.5-325] Insulin Lispro [Humalog] 20 unit SQ HS 12/05/16 12/05/16 History Insulin Lispro [Humalog] 40 unit SQ DAILY 12/05/16 12/05/16 History Pantoprazole [Protonix] 40 mg PO DAILY 12/05/16 12/05/16 History Sulfamethoxazole/Trimethoprim 1 tab PO DIRECTED 12/05/16 12/05/16 History [Bactrim DS 800-160 mg] Temozolomide [Temodar] 140 mg PO DAILY 12/05/16 12/05/16 History Thyroid,Pork [[place] Thyroid] 60 mg PO DAILY 12/05/16 12/05/16 History Valsartan 240 mg PO DAILY 12/05/16 12/05/16 History amLODIPine [Norvasc] 5 mg PO DAILY 12/05/16 12/05/16 History Allergies Allergy/AdvReac Type Severity Reaction Status Date / Time No Known Allergies Allergy Verified 12/05/16 15:59 Physical Exam Vitals: Vital Signs Temp Pulse Resp BP Pulse Ox 12/06/16 19:53 83 12/06/16 19:00 78 18 115/43 94 L 12/06/16 18:00 87 21 131/57 95 12/06/16 17:00 75 15 137/51 95 12/06/16 16:03 76 12/06/16 16:00 98.1 F 77 15 131/56 100 12/06/16 15:53 75 12/06/16 15:00 79 16 128/67 93 L 12/06/16 14:00 82 20 139/49 95 12/06/16 13:00 92 21 130/42 97 12/06/16 12:00 98.6 F 97 19 137/49 98 12/06/16 11:00 91 14 140/48 97 12/06/16 10:00 85 14 159/50 97 12/06/16 09:24 82 12/06/16 09:00 76 15 156/78 98 12/06/16 08:58 75 12/06/16 08:00 97.9 F 64 14 145/59 97 12/06/16 07:00 62 20 146/68 96 12/06/16 06:00 70 16 147/52 93 L 12/06/16 05:00 59 L 18 131/61 93 L 12/06/16 04:00 97.6 F 55 L 16 116/49 95 12/06/16 03:00 54 L 14 121/52 95 12/06/16 02:00 56 L 16 131/49 96 12/06/16 01:00 70 20 131/54 94 L 12/06/16 00:00 97.5 F L 55 L 22 110/46 93 L 12/05/16 23:00 59 L 20 129/49 92 L 12/05/16 22:00 94 18 104/45 99 12/05/16 21:00 61 26 H 115/46 97 12/05/16 20:59 73 12/05/16 20:46 71 Intake and Output 12/06/16 12/06/16 12/06/16 06:59 14:59 22:59 Intake Total 6135.809 5346.810 1060.452 Output Total 400 1300 400 Balance 848.630 659.810 660.452 Intake: IV 1200 1350 750 Calcium Gluconate 1,000 100 mg In Sodium Chloride 0.9 % 100 ml @ 100 mls/hr IVPB ONCE ONE Rx#: [id number] Sodium Chloride 0.9% 1, 1200 1000 750 000 ml @ 150 mls/hr IV . Q6H40M [facility] Rx#:[id number] Vancomycin 1,250 mg In 250 Sodium Chloride 0.9% 250 ml @ 125 mls/hr IVPB Q16H [facility] Rx#:[id number] Intake, IV Titration 48.630 9.810 10.452 Amount Insulin Regular 100 unit 48.630 9.810 10.452 In Sodium Chloride 0.9% 100 ml @ 0.1 UNITS/KG/HR 7.28 mls/hr IV .[id number] [facility] Rx#:[id number] Oral 300 Tube Feeding 250 Blood Product 350 Output: Urine 400 1300 400 Other: Voiding Method Bedpan Bedpan Bedpan Weight 67.9 kg 67.9 kg Patient Weight 12/07/16 06:59 Weight 67.9 kg - Constitutional General appearance: no acute distress - EENT Eyes: EOMI, PERRLA ENT: hearing grossly normal, normal oropharynx - Neck Neck: no lymphadenopathy Thyroid: bilateral: normal size - Respiratory Respiratory: bilateral: CTA - Cardiovascular Rhythm: regular Heart sounds: normal: S1, S2 - Gastrointestinal General gastrointestinal: normal bowel sounds, soft - Integumentary Integumentary: normal - Neurologic Neurologic: CNII-XII intact - Musculoskeletal Musculoskeletal: generalized weakness, strength equal bilaterally - Psychiatric Psychiatric: A&O x's 3, appropriate affect Results CBC & Chem 7: 12/06/16 04:21 12/06/16 10:54 Labs: Abnormal Lab Results - Last 24 Hours (Table) 12/05/16 12/05/16 12/05/16 Range/Units 16:38 20:10 20:21 WBC (3.8-10.6) k/uL RDW (11.5-15.5) % Plt Count (150-450) k/uL Neutrophils # (1.3-7.7) k/uL Monocytes # (0-1.0) k/uL Sodium 127 L (137-145) mmol/L Potassium 5.6 H (3.5-5.1) mmol/L Carbon Dioxide 12 L (22-30) mmol/L BUN 64 H (7-17) mg/dL Creatinine 1.20 H (0.52-1.04) mg/dL Glucose 479 H* (74-99) mg/dL POC Glucose (mg/dL) 464 H (75-99) mg/dL Hemoglobin A1c 9.4 H (4.2-6.1) % Plasma Lactic Acid Brian (0.7-2.0) mmol/L Triglycerides (<150) mg/dL HDL Cholesterol (40-60) mg/dL TSH (0.465-4.680) mIU/L 12/05/16 12/05/16 12/06/16 Range/Units 20:25 23:04 00:17 WBC (3.8-10.6) k/uL RDW (11.5-15.5) % Plt Count (150-450) k/uL Neutrophils # (1.3-7.7) k/uL Monocytes # (0-1.0) k/uL Sodium 130 L (137-145) mmol/L Potassium 5.4 H (3.5-5.1) mmol/L Carbon Dioxide 14 L (22-30) mmol/L BUN 59 H (7-17) mg/dL Creatinine (0.52-1.04) mg/dL Glucose 202 H (74-99) mg/dL POC Glucose (mg/dL) 252 H (75-99) mg/dL Hemoglobin A1c (4.2-6.1) % Plasma Lactic Acid Brian 2.3 H* (0.7-2.0) mmol/L Triglycerides (<150) mg/dL HDL Cholesterol (40-60) mg/dL TSH (0.465-4.680) mIU/L 12/06/16 12/06/16 12/06/16 Range/Units 00:25 01:25 02:21 WBC (3.8-10.6) k/uL RDW (11.5-15.5) % Plt Count (150-450) k/uL Neutrophils # (1.3-7.7) k/uL Monocytes # (0-1.0) k/uL Sodium (137-145) mmol/L Potassium (3.5-5.1) mmol/L Carbon Dioxide (22-30) mmol/L BUN (7-17) mg/dL Creatinine (0.52-1.04) mg/dL Glucose (74-99) mg/dL POC Glucose (mg/dL) 190 H 156 H 110 H (75-99) mg/dL Hemoglobin A1c (4.2-6.1) % Plasma Lactic Acid Brian (0.7-2.0) mmol/L Triglycerides (<150) mg/dL HDL Cholesterol (40-60) mg/dL TSH (0.465-4.680) mIU/L 12/06/16 12/06/16 12/06/16 Range/Units 04:21 04:21 05:22 WBC 22.1 H (3.8-10.6) k/uL RDW 15.6 H (11.5-15.5) % Plt Count 122 L (150-450) k/uL Neutrophils # 18.8 H (1.3-7.7) k/uL Monocytes # 1.2 H (0-1.0) k/uL Sodium 129 L (137-145) mmol/L Potassium 6.6 H* (3.5-5.1) mmol/L Carbon Dioxide 14 L (22-30) mmol/L BUN 52 H (7-17) mg/dL Creatinine (0.52-1.04) mg/dL Glucose (74-99) mg/dL POC Glucose (mg/dL) 137 H (75-99) mg/dL Hemoglobin A1c (4.2-6.1) % Plasma Lactic Acid Brian (0.7-2.0) mmol/L Triglycerides 354 H (<150) mg/dL HDL Cholesterol 25 L (40-60) mg/dL TSH 0.090 L (0.465-4.680) mIU/L 12/06/16 12/06/16 12/06/16 Range/Units 06:35 07:04 08:15 WBC (3.8-10.6) k/uL RDW (11.5-15.5) % Plt Count (150-450) k/uL Neutrophils # (1.3-7.7) k/uL Monocytes # (0-1.0) k/uL Sodium (137-145) mmol/L Potassium (3.5-5.1) mmol/L Carbon Dioxide (22-30) mmol/L BUN (7-17) mg/dL Creatinine (0.52-1.04) mg/dL Glucose (74-99) mg/dL POC Glucose (mg/dL) 141 H 130 H 122 H (75-99) mg/dL Hemoglobin A1c (4.2-6.1) % Plasma Lactic Acid Brian (0.7-2.0) mmol/L Triglycerides (<150) mg/dL HDL Cholesterol (40-60) mg/dL TSH (0.465-4.680) mIU/L 12/06/16 12/06/16 12/06/16 Range/Units 09:07 10:04 10:54 WBC (3.8-10.6) k/uL RDW (11.5-15.5) % Plt Count (150-450) k/uL Neutrophils # (1.3-7.7) k/uL Monocytes # (0-1.0) k/uL Sodium (137-145) mmol/L Potassium 5.7 H (3.5-5.1) mmol/L Carbon Dioxide (22-30) mmol/L BUN (7-17) mg/dL Creatinine (0.52-1.04) mg/dL Glucose (74-99) mg/dL POC Glucose (mg/dL) 176 H 240 H (75-99) mg/dL Hemoglobin A1c (4.2-6.1) % Plasma Lactic Acid Brian (0.7-2.0) mmol/L Triglycerides (<150) mg/dL HDL Cholesterol (40-60) mg/dL TSH (0.465-4.680) mIU/L 12/06/16 12/06/16 12/06/16 Range/Units 11:17 11:59 13:21 WBC (3.8-10.6) k/uL RDW (11.5-15.5) % Plt Count (150-450) k/uL Neutrophils # (1.3-7.7) k/uL Monocytes # (0-1.0) k/uL Sodium (137-145) mmol/L Potassium (3.5-5.1) mmol/L Carbon Dioxide (22-30) mmol/L BUN (7-17) mg/dL Creatinine (0.52-1.04) mg/dL Glucose (74-99) mg/dL POC Glucose (mg/dL) 242 H 269 H 337 H (75-99) mg/dL Hemoglobin A1c (4.2-6.1) % Plasma Lactic Acid Brian (0.7-2.0) mmol/L Triglycerides (<150) mg/dL HDL Cholesterol (40-60) mg/dL TSH (0.465-4.680) mIU/L 12/06/16 12/06/16 12/06/16 Range/Units 14:24 14:59 16:00 WBC (3.8-10.6) k/uL RDW (11.5-15.5) % Plt Count (150-450) k/uL Neutrophils # (1.3-7.7) k/uL Monocytes # (0-1.0) k/uL Sodium (137-145) mmol/L Potassium (3.5-5.1) mmol/L Carbon Dioxide (22-30) mmol/L BUN (7-17) mg/dL Creatinine (0.52-1.04) mg/dL Glucose (74-99) mg/dL POC Glucose (mg/dL) 355 H 300 H 305 H (75-99) mg/dL Hemoglobin A1c (4.2-6.1) % Plasma Lactic Acid Brian (0.7-2.0) mmol/L Triglycerides (<150) mg/dL HDL Cholesterol (40-60) mg/dL TSH (0.465-4.680) mIU/L 12/06/16 12/06/16 Range/Units 16:09 16:50 WBC (3.8-10.6) k/uL RDW (11.5-15.5) % Plt Count (150-450) k/uL Neutrophils # (1.3-7.7) k/uL Monocytes # (0-1.0) k/uL Sodium (137-145) mmol/L Potassium (3.5-5.1) mmol/L Carbon Dioxide (22-30) mmol/L BUN (7-17) mg/dL Creatinine (0.52-1.04) mg/dL Glucose (74-99) mg/dL POC Glucose (mg/dL) 300 H 297 H (75-99) mg/dL Hemoglobin A1c (4.2-6.1) % Plasma Lactic Acid Brian (0.7-2.0) mmol/L Triglycerides (<150) mg/dL HDL Cholesterol (40-60) mg/dL TSH (0.465-4.680) mIU/L Microbiology - Last 24 Hours (Table) 12/05/16 17:00 Urine Culture - Preliminary Urine,Voided Chest x-ray: report reviewed CT scan - chest: report reviewed Assessment and Plan (1) Mental status change Narrative/Plan: This most likely appears to be due to high blood sugars and dehydration. It is unlikely to have been related to our treatment effect, or her history of malignancy, as symptoms have reverse very rapidly with hydration and control of blood sugar. Continue treatment, per the admitting service and critical care medicine Status: Acute (2) Hyperglycemia Narrative/Plan: The patient likely had a hyperosmolar state, but no evidence of ketoacidosis. High blood sugars are due to the use of steroids. However steroids cannot be discontinued, as the patient is undergoing radiation at this time. She will therefore need more aggressive control of blood sugar. Status: Acute (3) Leucocytosis Narrative/Plan: There was concern for infection, given the elevated white count. This is due to predominant neutrophilia. The patient Was started on broad-spectrum antibiotics as a result. However she has had no fever, with the cultures negative so far. UA also shows no evidence of infection .chest x-ray is clear. The leukocytosis is most likely due to steroid effect. At this time, there is no evidence of infection. Agree with stopping antibiotics as recommended by critical care medicine. Status: Acute (4) Glioblastoma Narrative/Plan: The patient is status post gross total resection, and a started concurrent chemo radiation with Temodar. Given the rapid improvement in his symptoms, this is not felt to be due to treatment effect. Blood counts are quite adequate. Therefore from my standpoint, the patient can continue Temodar. She can take her own medication from home Status: Acute
[2016-12-06] MEDS: ATORVASTATIN 20 MG TAB PO SCH (21:22)
[2016-12-06 21:23] LABS: Glucose,Whole Blood 199 mg/dL (75-99)
[2016-12-07] MEDS: HEPARIN SODIUM,PORCINE 5,000 UNIT/ML 1 ML VIAL SQ SCH ×4 (00:11→23:32)
[2016-12-07 04:56] LABS: Basophils % (A) 0 %; CH 28.9; CHCM 32.7; Eosinophils % (A) 0 %; HCT 35.8 % (34.0-46.0); HGB 12.2 gm/dL (11.4-16.0); Luc # (Auto) 0.07; Luc % (Auto) 0; Lymphocytes % (A) 6 %; MCH 30.1 pg (25.0-35.0); MCHC 34.1 g/dL (31.0-37.0); MCV 88.3 fL (80.0-100.0); Mean Platelet Volume 7.8; Monocytes # (A) 0.6 k/uL (0-1.0); Monocytes % (A) 3 %; Neutrophils # (A) 14.6 k/uL (1.3-7.7); Neutrophils % (A) 90 %; RBC 4.05 m/uL (3.80-5.40); RDW 14.6 % (11.5-15.5)
[2016-12-07 05:06] LABS: ALT 51 U/L (9-52); AST 23 U/L (14-36); Alkaline Phosphatase 60 U/L (38-126); Anion Gap 7 mmol/L; Blood Urea Nitrogen 27 mg/dL (7-17); Calcium 9.2 mg/dL (8.4-10.2); Carbon Dioxide 16 mmol/L (22-30); Chloride 107 mmol/L (98-107); Glucose 252 mg/dL (74-99); Magnesium 1.8 mg/dL (1.6-2.3); Non-African American GFR(MDRD) >60 (>60 ml/min/1.73 sqM); Phosphorous 2.9 mg/dL (2.5-4.5); Potassium 4.5 mmol/L (3.5-5.1); Sodium 130 mmol/L (137-145); Total Bilirubin 0.7 mg/dL (0.2-1.3)
[2016-12-07 05:20] LABS: Manual Review Performed
[2016-12-07 05:21] LABS: WBC 16.2 k/uL (3.8-10.6)
[2016-12-07] MEDS ORDERED: Magnesium Replacement Protocol 1 EACH MISC MISCELLANE PRN (06:59)
[2016-12-07 07:17] LABS: Glucose,Whole Blood 256 mg/dL (75-99)
[2016-12-07] MEDS: SODIUM CHLORIDE 0.9% 1,000 ML IV SCH ×3 (08:20→13:31)
[2016-12-07] MEDS: MAGNESIUM SULFATE-D5W PMX 1 GM in DEXTROSE/WATER 1 100ML.BAG IVPB SCH ×2 (08:21→09:30)
[2016-12-07] MEDS: CYANOCOBALAMIN 500 MCG TAB PO SCH (08:23)
[2016-12-07] MEDS: CITALOPRAM HYDROBROMIDE 20 MG TAB PO SCH (08:23)
[2016-12-07] MEDS: DEXAMETHASONE 4 MG TAB PO SCH (08:23)
[2016-12-07] MEDS: amLODIPine 5 MG TAB PO SCH (08:23)
[2016-12-07] MEDS: ASPIRIN 81 MG PO SCH (08:23)
[2016-12-07] MEDS: PANTOPRAZOLE 40 MG TABLET PO SCH (08:24)
[2016-12-07] MEDS: TEMOZOLOMIDE 140 MG PO SCH (08:24)
[2016-12-07] MEDS: IPRATROPIUM-ALBUTEROL 3 ML NEB INHALATION SCH ×4 (08:41→19:30)
[2016-12-07] MEDS: INSULIN LISPRO (humaLOG) 300 UNIT/3 ML VIAL SQ SCH ×7 (09:24→21:16)
--- NOTE | 2016-12-07 09:50 | PN ---
PROGRESS NOTE SUBJECTIVE: This is a white female, who is a 66-year-old, with glioblastoma multiforme right parietal lobe and severe hyperkalemia, hyponatremia and possible reaction to chemotherapy with decreased response and is quite confused, lethargic. Sent here with sugars in the 600 to 700s[place] [address] ranges with neutrophil and was started on broad-spectrum antibiotics. She was mood to ICU. She is getting stronger each day. Temp 98, blood pressure 120s to 130s over 60s to 70s, O2 , pulse rate 80s to 90s. Respiratory rate is 12 to 16. Cardiovascular: S1, S2. Lungs shows transmitted airway sounds. Abdomen is soft, nontender. No adenopathy. Integument: No rashes or excoriations or bruising. Bowel sounds are normal. Labs are reviewed. ASSESSMENT: 1. Encephalopathy secondary to hyperosmolar ketotic coma. 2. Dehydration. 3. Hyperglycemia secondary chemo. 4. Hyperglycemia secondary to possible steroids. Steroids have been given with radiation causing sugar and leukocytosis. Treated with IV antibiotics. So far, UA and chest x-ray are negative. 5. Leukocytosis possibly due to steroids. 6. Antibiotics topically. 7. Glioblastoma, status post resection of the tumor. 8. Dehydration and elevated blood glucose levels. Continue with Temodar as outpatient per Hematology consult. ICU time is 30 minutes. MMODL / IJN: [id number] /
--- NOTE | 2016-12-07 09:58 | P.PN ---
Subjective This is a 66-year-old female patient, very pleasant, who got recently diagnosed having glioblastoma multiforme he. The patient underwent craniotomy with subtotal resection of the tumor and a Hospital in [facility]. Subsequently she came in to [place] and currently she is seeing radiation oncology. [facility] and Dr. Londono from medical oncology. The patient was started radiation therapy and she has received a single session. She was also started on Temador . The patient was also on systemic steroids and she was on higher dose of Decadron and currently she is down to 4 mg on a daily basis. This patient is diabetic and she was using Levemir insulin which she stopped taking because of the high cost. Currently she is taking Humalog 40 units in the morning and 20 units in the evening. She is noted the blood sugars to be quite high and there has been progressive rise in the blood sugars. She was having increased urination and she came in quite dehydrated. She presented emergency department and she was found to be profoundly hyperglycemic and her initial blood sugar was 708. She was in a hyperosmolar nonketotic state. She was started on an insulin drip. She was started on fluid resuscitation and she received aggressive fluid resuscitation more than 3 L of IV fluids. Her creatinine at a time of admission was 1. is currently down to 0.9. She did have also a component of hyperkalemia, and her potassium level was at 7.0. She received calcium gluconate. She received albuterol treatments and insulin. Subsequent potassium level from this morning is down to 5.7. No EKG changes this morning. No cough. No sputum production. No chest tightness. No wheezing. No nausea. No vomiting. No emesis. No skin rashes. No falls. Following her surgery she has experienced some left- sided weakness which is attributed to her craniotomy. CAT scan of the chest was done without contrast and essentially within normal limits. The chest x- ray shows no acute cardiopulmonary process. The urinalysis is negative. The blood sugars under better control and most recent blood sugar is below 200. The patient's lactic acid level is also down to 1.3. The patient is seen again today 12/07/2016 in follow-up in the intensive care unit. She is awake and alert in no acute distress. She denies any worsening shortness of breath, cough or congestion. Maintain O2 saturations up to 100% on room air. Hemodynamically stable. Afebrile. No dizziness, lightheadedness. Her white count is trending down currently at 16.2. Sodium improved to 1:30, potassium improved to 4.5. Bicarb improved at 16, renal function stable at 0.70 creatinine. Blood glucose remaining high at 256. She remains on Lantus and Humalog scale Objective - Vital Signs Vital signs: Vital Signs Temp 98.4 F 12/07/16 08:00 Pulse 76 12/07/16 09:00 Resp 15 12/07/16 09:00 BP 147/61 12/07/16 09:00 Pulse Ox 100 12/07/16 09:00 Intake & Output 12/06/16 12/07/16 12/07/16 18:59 06:59 18:59 Intake Total 2870.262 1800 650 Output Total 1700 2300 0 Balance 1170.262 -500 650 Weight 67.9 kg 67.4 kg Intake: IV 1950 1800 650 Calcium Gluconate 1,000 100 mg In Sodium Chloride 0.9 % 100 ml @ 100 mls/hr IVPB ONCE ONE Rx#: [id number] Magnesium Sulfate-D5w Pmx 200 1 gm In Dextrose/Water 1 100ml.bag @ 100 mls/hr IVPB Q1H [facility] Rx#: [id number] Sodium Chloride 0.9% 1, 1600 1800 450 000 ml @ 150 mls/hr IV . Q6H40M [facility] Rx#:[id number] Vancomycin 1,250 mg In 250 Sodium Chloride 0.9% 250 ml @ 125 mls/hr IVPB Q16H [facility] Rx#:[id number] Intake, IV Titration 20.262 Amount Insulin Regular 100 unit 20.262 In Sodium Chloride 0.9% 100 ml @ 0.1 UNITS/KG/HR 7.28 mls/hr IV .[id number] [facility] Rx#:[id number] Oral 300 Tube Feeding 250 Blood Product 350 Output: Urine 1700 2300 0 Other: Voiding Method Bedpan Bedpan Bedpan # Voids 1 - Exam The patient appeared well nourished and normally developed. Vital signs as documented. Head exam is unremarkable. No scleral icterus or corneal arcus noted. Neck is without jugular venous distension, thyromegaly, or carotid bruits. Carotid upstrokes are brisk bilaterally. Lungs are clear to auscultation and percussion. Cardiac exam reveals the PMI to be normally sized and situated. Rhythm is regular. First and second heart sounds normal. No murmurs, rubs or gallops. Abdominal exam reveals normal bowel sounds, no masses , no organomegaly and no aortic enlargement. Extremities are nonedematous and both femoral and pedal pulses are normal. - Labs CBC & Chem 7: 12/07/16 04:36 12/07/16 04:36 Labs: Abnormal Lab Results - Last 24 Hours (Table) 12/05/16 12/06/16 12/06/16 Range/Units 16:38 10:04 10:54 WBC (3.8-10.6) k/uL Plt Count (150-450) k/uL Neutrophils # (1.3-7.7) k/uL Sodium (137-145) mmol/L Potassium 5.7 H (3.5-5.1) mmol/L Carbon Dioxide (22-30) mmol/L BUN (7-17) mg/dL Glucose (74-99) mg/dL POC Glucose (mg/dL) 240 H (75-99) mg/dL Hemoglobin A1c 9.4 H (4.2-6.1) % Total Protein (6.3-8.2) g/dL Albumin (3.5-5.0) g/dL 12/06/16 12/06/16 12/06/16 Range/Units 11:17 11:59 13:21 WBC (3.8-10.6) k/uL Plt Count (150-450) k/uL Neutrophils # (1.3-7.7) k/uL Sodium (137-145) mmol/L Potassium (3.5-5.1) mmol/L Carbon Dioxide (22-30) mmol/L BUN (7-17) mg/dL Glucose (74-99) mg/dL POC Glucose (mg/dL) 242 H 269 H 337 H (75-99) mg/dL Hemoglobin A1c (4.2-6.1) % Total Protein (6.3-8.2) g/dL Albumin (3.5-5.0) g/dL 12/06/16 12/06/16 12/06/16 Range/Units 14:24 14:59 16:00 WBC (3.8-10.6) k/uL Plt Count (150-450) k/uL Neutrophils # (1.3-7.7) k/uL Sodium (137-145) mmol/L Potassium (3.5-5.1) mmol/L Carbon Dioxide (22-30) mmol/L BUN (7-17) mg/dL Glucose (74-99) mg/dL POC Glucose (mg/dL) 355 H 300 H 305 H (75-99) mg/dL Hemoglobin A1c (4.2-6.1) % Total Protein (6.3-8.2) g/dL Albumin (3.5-5.0) g/dL 12/06/16 12/06/16 12/06/16 Range/Units 16:09 16:50 21:21 WBC (3.8-10.6) k/uL Plt Count (150-450) k/uL Neutrophils # (1.3-7.7) k/uL Sodium (137-145) mmol/L Potassium (3.5-5.1) mmol/L Carbon Dioxide (22-30) mmol/L BUN (7-17) mg/dL Glucose (74-99) mg/dL POC Glucose (mg/dL) 300 H 297 H 199 H (75-99) mg/dL Hemoglobin A1c (4.2-6.1) % Total Protein (6.3-8.2) g/dL Albumin (3.5-5.0) g/dL 12/07/16 12/07/16 12/07/16 Range/Units 04:36 04:36 07:14 WBC 16.2 H (3.8-10.6) k/uL Plt Count 85 L (150-450) k/uL Neutrophils # 14.6 H (1.3-7.7) k/uL Sodium 130 L (137-145) mmol/L Potassium (3.5-5.1) mmol/L Carbon Dioxide 16 L (22-30) mmol/L BUN 27 H (7-17) mg/dL Glucose 252 H (74-99) mg/dL POC Glucose (mg/dL) 256 H (75-99) mg/dL Hemoglobin A1c (4.2-6.1) % Total Protein 5.0 L (6.3-8.2) g/dL Albumin 2.8 L (3.5-5.0) g/dL Microbiology - Last 24 Hours (Table) 12/05/16 17:00 Urine Culture - Final Urine,Voided Assessment and Plan Plan: Assessment 1 acute hyperosmolar nonketotic state with profound hyperglycemia, probably exacerbated by chronic intake of systemic steroids and suboptimal insulin therapy as the patient had to discontinue Levemir insulin for financial reasons. Currently on insulin drip. Patient is was resuscitated IV fluids. 2 glioblastoma multiforme status post craniotomy, currently on chemotherapy and radiation therapy. 3 acute hyperkalemia, improving and the potassium level is down to 5.7 4 metabolic acidosis secondary to above 5 hypertension 6 left lower extremities hematoma/evacuated surgically. 7 leukocytosis which is likely reactive in nature Plan: The patient was seen and evaluated by Dr. Barrera. Her labs were reviewed. We 'll continue with her Lantus and a sliding scale coverage. We'll decrease her IV fluids to 40 mL's per hour. She'll be educated regarding her diabetes. Social work has been consulted regarding her financial situation. She remains on heparin subcutaneous for DVT prophylaxis. Protonix for GI prophylaxis. We will transfer her out of the intensive care unit later today. We'll continue to follow.
[2016-12-07 12:23] LABS: Glucose,Whole Blood 261 mg/dL (75-99)
[2016-12-07] MEDS: D5-0.45% NACL WITH KCL 20MEQ/L 1,000 ML IV SCH (13:39)
[2016-12-07 18:21] LABS: Glucose,Whole Blood 174 mg/dL (75-99)
[2016-12-07 21:08] LABS: Glucose,Whole Blood 183 mg/dL (75-99)
[2016-12-07] MEDS: INSULIN GLARGINE 100 UNIT/ML 10 ML VIAL SQ SCH (21:16)
[2016-12-07] MEDS: ATORVASTATIN 20 MG TAB PO SCH (21:17)
[2016-12-08 07:16] LABS: Basophils % (A) 0 %; CH 30.7; CHCM 35.2; Eosinophils % (A) 0 %; HCT 34.9 % (34.0-46.0); HGB 11.7 gm/dL (11.4-16.0); Luc # (Auto) 0.06; Luc % (Auto) 0; Lymphocytes # (A) 1.6 k/uL (1.0-4.8); Lymphocytes % (A) 10 %; MCH 29.2 pg (25.0-35.0); MCHC 33.5 g/dL (31.0-37.0); MCV 87.3 fL (80.0-100.0); Mean Platelet Volume 8.5; Monocytes # (A) 0.6 k/uL (0-1.0); Monocytes % (A) 3 %; Neutrophils # (A) 13.8 k/uL (1.3-7.7); Neutrophils % (A) 86 %; RDW 15.1 % (11.5-15.5); WBC 16.1 k/uL (3.8-10.6); WBC (Perox) 16.07
[2016-12-08 07:28] LABS: ALT 48 U/L (9-52); AST 20 U/L (14-36); Alkaline Phosphatase 64 U/L (38-126); Anion Gap 6 mmol/L; Blood Urea Nitrogen 21 mg/dL (7-17); Carbon Dioxide 19 mmol/L (22-30); Chloride 105 mmol/L (98-107); Glucose 193 mg/dL (74-99); Magnesium 1.9 mg/dL (1.6-2.3); Non-African American GFR(MDRD) >60 (>60 ml/min/1.73 sqM); Phosphorous 2.4 mg/dL (2.5-4.5); Potassium 4.2 mmol/L (3.5-5.1); Sodium 130 mmol/L (137-145); Total Bilirubin 0.6 mg/dL (0.2-1.3); Total Protein 5.3 g/dL (6.3-8.2)
[2016-12-08 07:54] LABS: Glucose,Whole Blood 222 mg/dL (75-99)
[2016-12-08] MEDS: INSULIN LISPRO (humaLOG) 300 UNIT/3 ML VIAL SQ SCH ×7 (08:15→21:12)
[2016-12-08] MEDS: ASPIRIN 81 MG PO SCH (08:17)
[2016-12-08] MEDS: DEXAMETHASONE 4 MG TAB PO SCH (08:17)
[2016-12-08] MEDS: CYANOCOBALAMIN 500 MCG TAB PO SCH (08:18)
[2016-12-08] MEDS: HEPARIN SODIUM,PORCINE 5,000 UNIT/ML 1 ML VIAL SQ SCH ×3 (08:18→23:56)
[2016-12-08] MEDS: PANTOPRAZOLE 40 MG TABLET PO SCH (08:18)
[2016-12-08] MEDS: CITALOPRAM HYDROBROMIDE 20 MG TAB PO SCH (08:18)
[2016-12-08] MEDS: amLODIPine 5 MG TAB PO SCH (08:18)
[2016-12-08] MEDS: TEMOZOLOMIDE 140 MG PO SCH (08:19)
[2016-12-08] MEDS: IPRATROPIUM-ALBUTEROL 3 ML NEB INHALATION SCH ×4 (09:40→19:43)
[2016-12-08 11:12] LABS: Glucose,Whole Blood 222 mg/dL (75-99)
--- NOTE | 2016-12-08 12:15 | PN ---
PROGRESS NOTE DATE OF SERVICE: 12/07/2016 I am covering for Dr. Wright. HISTORY OF PRESENT ILLNESS: This 66-year-old woman who was admitted with encephalopathy secondary to hyperosmotic ketotic coma state and dehydration, patient also has hyperglycemia secondary to steroids. The patient has been closely monitored. The patient has been transferred out of ICU at this time. The patient also has glioblastoma multiforme on chemoradiation. PAST MEDICAL HISTORY: Reviewed. REVIEW OF SYSTEMS: CARDIOVASCULAR: No angina. RESPIRATORY: Occasional cough. GI: As mentioned. : No dysuria. NERVOUS SYSTEM: No numbness or weakness. CURRENT MEDICATIONS: 1. DuoNeb q.i.d. and p.r.n. 2. Norvasc 5 mg. 3. Aspirin 81 mg daily. 4. Lipitor 80 mg. 5. Celexa. 6. Vitamin B. 8. Heparin. 9. Lantus. 10.Humalog. 11.Narcan. 12.Protonix. PHYSICAL EXAM: Patient is alert, oriented x2. Pulse is 80, blood pressure 130/60, respirations 16, temp 98 degrees, pulse ox 94% on room air. HEENT: Conjunctivae normal. NECK: No jugular venous distention. CARDIOVASCULAR: S1,S2. RESPIRATORY: Breath sounds diminished at the bases. A few scattered rhonchi and crackles. ABDOMEN: Soft, nontender, no mass palpable. LABORATORY DATA: WBC 16.2, hemoglobin is 12.8, Accu-Cheks are 256, 261. ASSESSMENT: 1. Acute metabolic encephalopathy secondary to hyperosmolar ketotic coma. 2. Dehydration. 3. Hyperglycemia secondary to steroids possibly. 4. Glioblastoma multiforme, status post resection and on chemoradiation. 5. Dehydration. 6. Hyponatremia. RECOMMENDATION AND DISCUSSION: In this 66-year-old woman who presented with multiple complex medical issues as mentioned. At this time I recommend to continue current medications, continue symptomatic treatment. Otherwise monitor blood sugars closely. The patient is currently on insulin with combination of Lantus and lispro. Will continue to monitor and increase ambulation. Further recommendation to follow. Closely follow with Pulmonary. MMODL / IJN: [id number] / MTDD
--- NOTE | 2016-12-08 16:00 | P.PN ---
Subjective This is a 66-year-old female patient, very pleasant, who got recently diagnosed having glioblastoma multiforme he. The patient underwent craniotomy with subtotal resection of the tumor and a Hospital in [facility]. Subsequently she came in to [place] and currently she is seeing radiation oncology. [facility] and Dr. Londono from medical oncology. The patient was started radiation therapy and she has received a single session. She was also started on Temador . The patient was also on systemic steroids and she was on higher dose of Decadron and currently she is down to 4 mg on a daily basis. This patient is diabetic and she was using Levemir insulin which she stopped taking because of the high cost. Currently she is taking Humalog 40 units in the morning and 20 units in the evening. She is noted the blood sugars to be quite high and there has been progressive rise in the blood sugars. She was having increased urination and she came in quite dehydrated. She presented emergency department and she was found to be profoundly hyperglycemic and her initial blood sugar was 708. She was in a hyperosmolar nonketotic state. She was started on an insulin drip. She was started on fluid resuscitation and she received aggressive fluid resuscitation more than 3 L of IV fluids. Her creatinine at a time of admission was 1. is currently down to 0.9. She did have also a component of hyperkalemia, and her potassium level was at 7.0. She received calcium gluconate. She received albuterol treatments and insulin. Subsequent potassium level from this morning is down to 5.7. No EKG changes this morning. No cough. No sputum production. No chest tightness. No wheezing. No nausea. No vomiting. No emesis. No skin rashes. No falls. Following her surgery she has experienced some left- sided weakness which is attributed to her craniotomy. CAT scan of the chest was done without contrast and essentially within normal limits. The chest x- ray shows no acute cardiopulmonary process. The urinalysis is negative. The blood sugars under better control and most recent blood sugar is below 200. The patient's lactic acid level is also down to 1.3. The patient is seen again today 12/07/2016 in follow-up in the intensive care unit. She is awake and alert in no acute distress. She denies any worsening shortness of breath, cough or congestion. Maintain O2 saturations up to 100% on room air. Hemodynamically stable. Afebrile. No dizziness, lightheadedness. Her white count is trending down currently at 16.2. Sodium improved to 1:30, potassium improved to 4.5. Bicarb improved at 16, renal function stable at 0.70 creatinine. Blood glucose remaining high at 256. She remains on Lantus and Humalog scale On 12/08/2016 the patient is being seen in the follow-up. She is doing extremely well. She got moved out of the intensive care unit. No headache. No seizures. No nausea no vomiting. No dehydration. She is on Lantus insulin and she is also receiving Humalog with meals. The most recent blood sugar is at 222. No other significant events overnight and she is quite stable at this point. Objective - Vital Signs Vital signs: Vital Signs Temp 99.3 F 12/08/16 07:00 Pulse 92 12/08/16 12:34 Resp 16 12/08/16 08:00 BP 150/67 12/08/16 07:00 Pulse Ox 94 L 12/08/16 09:43 Intake & Output 12/07/16 12/08/16 12/08/16 18:59 06:59 18:59 Intake Total 950 400 240 Output Total 0 0 Balance 950 400 240 Weight 67.4 kg 67.4 kg 67.4 kg Intake: IV 950 400 Magnesium Sulfate-D5w Pmx 200 1 gm In Dextrose/Water 1 100ml.bag @ 100 mls/hr IVPB Q1H JOLENE Rx#: [id number] Sodium Chloride 0.9% 1, 750 400 000 ml @ 50 mls/hr IV . Q20H JOLENE Rx#:[id number] Oral 240 Output: Urine 0 0 Other: Voiding Method Bedpan Bedpan Bedpan # Voids 2 1 - Exam The patient appeared well nourished and normally developed. Vital signs as documented. Head exam is unremarkable. No scleral icterus or corneal arcus noted. Neck is without jugular venous distension, thyromegaly, or carotid bruits. Carotid upstrokes are brisk bilaterally. Lungs are clear to auscultation and percussion. Cardiac exam reveals the PMI to be normally sized and situated. Rhythm is regular. First and second heart sounds normal. No murmurs, rubs or gallops. Abdominal exam reveals normal bowel sounds, no masses , no organomegaly and no aortic enlargement. Extremities are nonedematous and both femoral and pedal pulses are normal. - Labs CBC & Chem 7: 12/08/16 06:54 12/08/16 06:54 Labs: Abnormal Lab Results - Last 24 Hours (Table) 12/07/16 12/07/16 12/08/16 Range/Units 18:12 21:05 06:54 WBC (3.8-10.6) k/uL Plt Count (150-450) k/uL Neutrophils # (1.3-7.7) k/uL Sodium 130 L (137-145) mmol/L Carbon Dioxide 19 L (22-30) mmol/L BUN 21 H (7-17) mg/dL Glucose 193 H (74-99) mg/dL POC Glucose (mg/dL) 174 H 183 H (75-99) mg/dL Phosphorus 2.4 L (2.5-4.5) mg/dL Total Protein 5.3 L (6.3-8.2) g/dL Albumin 2.9 L (3.5-5.0) g/dL 12/08/16 12/08/16 12/08/16 Range/Units 06:54 07:45 11:10 WBC 16.1 H (3.8-10.6) k/uL Plt Count 85 L (150-450) k/uL Neutrophils # 13.8 H (1.3-7.7) k/uL Sodium (137-145) mmol/L Carbon Dioxide (22-30) mmol/L BUN (7-17) mg/dL Glucose (74-99) mg/dL POC Glucose (mg/dL) 222 H 222 H (75-99) mg/dL Phosphorus (2.5-4.5) mg/dL Total Protein (6.3-8.2) g/dL Albumin (3.5-5.0) g/dL Assessment and Plan Plan: Assessment 1 acute hyperosmolar nonketotic state , resolved 2 glioblastoma multiforme status post craniotomy, currently on chemotherapy and radiation therapy. 3 acute hyperkalemia, resolved 4 metabolic acidosis secondary to above 5 hypertension 6 left lower extremities hematoma/evacuated surgically. 7 leukocytosis which is likely reactive in nature Plan Increase the Lantus to 16 units to give the patient a better blood sugar control. Continue the Humalog 10 units with meals. She is also in size. Coverage. Increased level of activity as tolerated. We will leave the rest of the management to medicine I will sign off the case. No active pulmonary or critical care issues on this patient.
[2016-12-08 17:23] LABS: Glucose,Whole Blood 253 mg/dL (75-99)
[2016-12-08 20:22] LABS: Glucose,Whole Blood 152 mg/dL (75-99)
[2016-12-08] MEDS: INSULIN GLARGINE 100 UNIT/ML 10 ML VIAL SQ SCH (21:11)
[2016-12-08] MEDS: ATORVASTATIN 20 MG TAB PO SCH (21:12)
[2016-12-09 07:03] LABS: Glucose,Whole Blood 109 mg/dL (75-99)
[2016-12-09] MEDS: HEPARIN SODIUM,PORCINE 5,000 UNIT/ML 1 ML VIAL SQ SCH ×2 (08:03→17:19)
[2016-12-09] MEDS: ASPIRIN 81 MG PO SCH (08:03)
[2016-12-09] MEDS: PANTOPRAZOLE 40 MG TABLET PO SCH (08:03)
[2016-12-09] MEDS: amLODIPine 5 MG TAB PO SCH (08:03)
[2016-12-09] MEDS: CYANOCOBALAMIN 500 MCG TAB PO SCH (08:03)
[2016-12-09] MEDS: CITALOPRAM HYDROBROMIDE 20 MG TAB PO SCH (08:03)
[2016-12-09] MEDS: DEXAMETHASONE 4 MG TAB PO SCH (08:03)
[2016-12-09] MEDS: TEMOZOLOMIDE 140 MG PO SCH (08:03)
[2016-12-09] MEDS: INSULIN LISPRO (humaLOG) 300 UNIT/3 ML VIAL SQ SCH ×7 (08:04→21:38)
--- NOTE | 2016-12-09 08:37 | PN ---
PROGRESS NOTE DATE OF SERVICE: 12/08/2016 I am covering for Dr. Ananda Wright. INTERVAL HISTORY: This 66-year-old woman who was admitted with acute metabolic encephalopathy secondary to also had multiple history of glioblastoma multiforme, gait dysfunction, also. The patient is confused. Currently the patient's p.o. intake appears to be improving. Dr. Barrera is following the patient closely. Past medical history reviewed. REVIEW OF SYSTEMS: Cardio system: No angina. Respiratory system: As mentioned earlier. GI: No nausea or vomiting. : No dysuria. Central nervous system: As mentioned earlier. MEDICATIONS: Current medications are reviewed and include: 1. DuoNeb q.i.d. and p.r.n. 2. Norvasc 5 mg. 3. Aspirin 81 mg. 4. Lipitor 10 mg. 5. Celexa 20 mg. 6. Vitamin B12 500 mcg daily. 7. Hexadrol 4 mg p.o. daily. 8. Heparin q8h. 9. Lantus. 10.Humalog. 11.Narcan p.r.n. 12.Protonix. 13.P.r.n. medications. PHYSICAL EXAMINATION: The patient is alert, oriented times two. Pulse is 104, blood pressure is 156/ 60, respiratory rate 20, temp 99.3, pulse ox 98% on room air. HEENT: Conjunctivae normal. Oral mucosa moist. Neck is no jugular venous distention. Cardiovascular: S1, S2 muffled. Respiratory: Breath sounds diminished at the bases and a few scattered rhonchi and crackles. Expiratory wheeze. Abdomen is soft, nontender. No mass palpable. Legs no edema. No swelling. Central nervous system: Higher functions as mentioned earlier. Moves all four extremities. Mild diffuse weakness . Skin: No ulcer, rash or bleeding. LABORATORY DATA: WBC 16.4, sodium 130, Accu-Cheks are noted 222. ASSESSMENT: 1. Acute metabolic acidosis secondary to diabetic ketotic coma. 2. Dehydration. 3. Hyperglycemia secondary to steroids possibly. 4. Glioblastoma multiforme status post resection and chemo or radiation. 5. Dehydration present on admission. 6. Hyponatremia. RECOMMENDATIONS AND DISCUSSION: Recommend to continue current medications. Continue symptomatic treatment. Continue monitoring. Monitor the patient closely. Continue with broad-spectrum IV antibiotics. PT/OT evaluation. Increase ambulation. Patient might be a candidate for rehab. Dr. Ananda Wright will follow. MMDREWL / IJN: [id number] / MTDD
[2016-12-09] MEDS: IPRATROPIUM-ALBUTEROL 3 ML NEB INHALATION SCH ×4 (09:10→19:40)
[2016-12-09] MEDS: SODIUM CHLORIDE 0.9% 1,000 ML IV SCH (09:47)
[2016-12-09 12:18] LABS: Glucose,Whole Blood 107 mg/dL (75-99)
[2016-12-09 16:54] LABS: Glucose,Whole Blood 66 mg/dL (75-99)
[2016-12-09 17:11] LABS: Glucose,Whole Blood 88 mg/dL (75-99)
[2016-12-09 20:29] LABS: Glucose,Whole Blood 231 mg/dL (75-99)
[2016-12-09] MEDS: INSULIN GLARGINE 100 UNIT/ML 10 ML VIAL SQ SCH (21:37)
[2016-12-09] MEDS: ATORVASTATIN 20 MG TAB PO SCH (21:37)
[2016-12-10] MEDS: HEPARIN SODIUM,PORCINE 5,000 UNIT/ML 1 ML VIAL SQ SCH ×3 (00:22→16:55)
[2016-12-10 07:14] LABS: Glucose,Whole Blood 204 mg/dL (75-99)
[2016-12-10] MEDS: INSULIN LISPRO (humaLOG) 300 UNIT/3 ML VIAL SQ SCH ×7 (07:41→21:47)
[2016-12-10 07:59] LABS: Basophils % (A) 0 %; CH 29.2; CHCM 33.3; Eosinophils % (A) 0 %; HCT 36.3 % (34.0-46.0); HGB 12.2 gm/dL (11.4-16.0); Luc # (Auto) 0.08; Luc % (Auto) 1; Lymphocytes # (A) 1.6 k/uL (1.0-4.8); Lymphocytes % (A) 15 %; MCH 29.6 pg (25.0-35.0); MCHC 33.7 g/dL (31.0-37.0); MCV 87.7 fL (80.0-100.0); Monocytes # (A) 0.3 k/uL (0-1.0); Monocytes % (A) 3 %; Neutrophils # (A) 8.4 k/uL (1.3-7.7); Neutrophils % (A) 81 %; RBC 4.13 m/uL (3.80-5.40); RDW 14.3 % (11.5-15.5); WBC 10.5 k/uL (3.8-10.6); WBC (Perox) 11.05
[2016-12-10] MEDS: IPRATROPIUM-ALBUTEROL 3 ML NEB INHALATION SCH ×4 (08:21→18:37)
[2016-12-10 08:22] LABS: ALT 98 U/L (9-52); AST 45 U/L (14-36); Alkaline Phosphatase 82 U/L (38-126); Anion Gap 8 mmol/L; Blood Urea Nitrogen 23 mg/dL (7-17); Calcium 9.1 mg/dL (8.4-10.2); Carbon Dioxide 22 mmol/L (22-30); Chloride 104 mmol/L (98-107); Glucose 185 mg/dL (74-99); Non-African American GFR(MDRD) >60 (>60 ml/min/1.73 sqM); Potassium 4.2 mmol/L (3.5-5.1); Sodium 134 mmol/L (137-145); Total Bilirubin 0.6 mg/dL (0.2-1.3); Total Protein 5.5 g/dL (6.3-8.2)
[2016-12-10] MEDS: CITALOPRAM HYDROBROMIDE 20 MG TAB PO SCH (08:51)
[2016-12-10] MEDS: PANTOPRAZOLE 40 MG TABLET PO SCH (08:51)
[2016-12-10] MEDS: DEXAMETHASONE 4 MG TAB PO SCH (08:51)
[2016-12-10] MEDS: CYANOCOBALAMIN 500 MCG TAB PO SCH (08:51)
[2016-12-10] MEDS: ALPRAZolam 0.25 MG TAB PO SCH ×3 (08:51→21:47)
[2016-12-10] MEDS: TEMOZOLOMIDE 140 MG PO SCH (08:51)
[2016-12-10] MEDS: ASPIRIN 81 MG PO SCH (08:51)
[2016-12-10] MEDS: amLODIPine 5 MG TAB PO SCH (08:51)
--- NOTE | 2016-12-10 08:56 | PN ---
PROGRESS NOTE SUBJECTIVE: This is a 66-year-old, white female admitted with status post glioblastoma, severe elevated potassium and elevated glucose levels. Sugars have been running 66 to mid 200s. Last CBC shows a white count of 16.1. Last Chem panel has not been done in a while. Patient is alert and oriented. She wants to go home with the daughter, not sure when. She has metabolic encephalopathy since status post glioblastoma multiforme surgery. Her oral intake is improving. CARDIOVASCULAR: S1, S2. LUNGS: Expiratory wheeze. ABDOMEN: Soft. LEGS: No edema. RESEARCH CHEF: Cranial nerves are intact. MUSCULOSKELETAL: Moves all 4 extremities. She has mild to moderate strength. White count as mentioned above. ASSESSMENT: 1. Acute metabolic acidosis secondary to nonketotic diabetic coma. 2. Hyperosmolar coma. 3. Dehydration. 4. Hyperglycemia secondary to possibly steroids. 5. Glioblastoma multiforme, status post chemo and radiation. 6. Dehydration of significant nature. 7. Hyponatremia. PLAN: Continue with current fluid intake. Oral intake. Possible discharge home to rehab center in the next 24-48 hours. Monitor CBC and Chem panel in the morning. MMODL / IJN: [id number] /
[2016-12-10 11:20] LABS: Glucose,Whole Blood 121 mg/dL (75-99)
--- NOTE | 2016-12-10 11:20 | PN ---
PROGRESS NOTE SUBJECTIVE: A 66-year-old white female with hyperglycemia, hyperkalemia, uncontrolled diabetes mellitus, acute drug reaction secondary to chemo and radiation. She is depressed, poor mood, poor affect. Sugars in the mid 100s to 200s. CARDIOVASCULAR: S1, S2. LUNGS: Clear. GI: Soft. HEMATOLOGY: Negative Homans' PSYCH: Fair mood and affect. NEUROLOGIC: Alert and oriented x3. Pupils are equal, round, reactive to light and accommodation. Temp 97, pulse 83, respiratory 16 to 18. Blood pressure is 113/70, O2 is 95% to 96% on room air. CARDIOVASCULAR S1, S2. Lungs are clear. ASSESSMENT: 1. Acute metabolic acidosis secondary to diabetic nonketotic coma, dehydration. 2. Hypoglycemia secondary to glioblastoma multiforme. 3. Dehydration. 4. Hyponatremia. Continue broad-spectrum IV antibiotics. PT, OT for rehab, but the patient not sure she wants rehabilitation. She may she is extremely anxious and crying during the exam medical exam today and wants something for depression and anxiety given, which I will order at this time. MMODL / IJN: [id number] /
[2016-12-10] MEDS: SODIUM CHLORIDE 0.9% 1,000 ML IV SCH ×3 (13:14→20:50)
--- NOTE | 2016-12-10 14:54 | P.PN ---
Subjective Principal diagnosis: GBM - on treatment The patient is teary today, she expressed frustration regarding her diagnosis. She notes that she is feeling much better than when she was initially admitted to the hospital. She has had 4 radiation treatments, and is taking daily Temodar. She is planned for 12 further radiation treatments. The patient is interested in information regarding hospice care. Objective - Vital Signs Vital signs: Vital Signs Temp 98.4 F 12/10/16 07:00 Pulse 60 12/10/16 07:00 Resp 18 12/10/16 07:00 BP 136/68 12/10/16 07:00 Pulse Ox 95 12/10/16 07:00 Intake & Output 12/09/16 12/10/16 12/10/16 18:59 06:59 18:59 Intake Total 990 Balance 990 Intake: IV 400 Sodium Chloride 0.9% 1, 400 000 ml @ 50 mls/hr IV . Q20H JOLENE Rx#:[id number] Oral 590 Other: Voiding Method Bedpan Bedpan Bedpan # Voids 2 - Constitutional General appearance: Present: average body habitus, no acute distress - EENT Eyes: Present: EOMI, PERRLA - Neck Neck: Absent: lymphadenopathy - Respiratory Respiratory: bilateral: CTA - Cardiovascular Rhythm: regular - Gastrointestinal General gastrointestinal: Absent: tenderness - Integumentary Integumentary: Absent: flushed, jaundiced - Neurologic Neurologic: Present: CNII-XII intact, focal deficits (Left lower extremity 4/5 strength) - Psychiatric Psychiatric: Present: A&O x's 3, appropriate affect (Sad today), intact judgment & insight - Labs CBC & Chem 7: 12/10/16 07:20 12/10/16 07:20 Labs: Abnormal Lab Results - Last 24 Hours (Table) 12/09/16 12/09/16 12/10/16 Range/Units 16:53 20:28 07:03 Plt Count (150-450) k/uL Neutrophils # (1.3-7.7) k/uL Sodium (137-145) mmol/L BUN (7-17) mg/dL Glucose (74-99) mg/dL POC Glucose (mg/dL) 66 L 231 H 204 H (75-99) mg/dL AST (14-36) U/L ALT (9-52) U/L Total Protein (6.3-8.2) g/dL Albumin (3.5-5.0) g/dL 12/10/16 12/10/16 12/10/16 Range/Units 07:20 07:20 11:07 Plt Count 105 L (150-450) k/uL Neutrophils # 8.4 H (1.3-7.7) k/uL Sodium 134 L (137-145) mmol/L BUN 23 H (7-17) mg/dL Glucose 185 H (74-99) mg/dL POC Glucose (mg/dL) 121 H (75-99) mg/dL AST 45 H (14-36) U/L ALT 98 H (9-52) U/L Total Protein 5.5 L (6.3-8.2) g/dL Albumin 3.2 L (3.5-5.0) g/dL - Imaging and Cardiology Chest x-ray: report reviewed CT scan - chest: report reviewed Assessment and Plan Plan: 1. GBM left parietal: I discussed with the patient, that it is reasonable for her to obtain information regarding palliative care/hospice. I did explain, that the patient only has 12 treatments of radiotherapy left. The patient expressed motivation and wanting to complete this course of treatment. She is anxious to be discharged from the hospital. I explained that from my point of view, the patient can resume radiotherapy tomorrow, and could even get treatment today but she declined. I spoke with the patient's daughter regarding the plan of care. Our office is arranging for them to have an informational meeting with hospice. The patient and her daughter in agreement with this plan. She does not intend to enroll in hospice care at this time, but is interested in obtaining further information. Time with Patient: Greater than 30
[2016-12-10 15:36] VITALS: RESP 16
[2016-12-10 17:29] LABS: Glucose,Whole Blood 220 mg/dL (75-99)
[2016-12-10 19:55] LABS: Glucose,Whole Blood 193 mg/dL (75-99)
[2016-12-10] MEDS: INSULIN GLARGINE 100 UNIT/ML 10 ML VIAL SQ SCH (21:47)
[2016-12-10] MEDS: ATORVASTATIN 20 MG TAB PO SCH (21:47)
[2016-12-11] MEDS: HEPARIN SODIUM,PORCINE 5,000 UNIT/ML 1 ML VIAL SQ SCH ×2 (00:05→07:53)
[2016-12-11] MEDS: D5-0.45% NACL WITH KCL 20MEQ/L 1,000 ML IV SCH (02:43)
[2016-12-11 07:02] LABS: Glucose,Whole Blood 129 mg/dL (75-99)
[2016-12-11] MEDS: IPRATROPIUM-ALBUTEROL 3 ML NEB INHALATION SCH ×3 (07:44→15:45)
[2016-12-11] MEDS: amLODIPine 5 MG TAB PO SCH (07:52)
[2016-12-11] MEDS: ASPIRIN 81 MG PO SCH (07:52)
[2016-12-11] MEDS: DEXAMETHASONE 4 MG TAB PO SCH (07:52)
[2016-12-11] MEDS: PANTOPRAZOLE 40 MG TABLET PO SCH (07:53)
[2016-12-11] MEDS: CYANOCOBALAMIN 500 MCG TAB PO SCH (07:53)
[2016-12-11] MEDS: CITALOPRAM HYDROBROMIDE 20 MG TAB PO SCH (07:53)
[2016-12-11] MEDS: ALPRAZolam 0.25 MG TAB PO SCH (07:57)
[2016-12-11] MEDS: INSULIN LISPRO (humaLOG) 300 UNIT/3 ML VIAL SQ SCH ×4 (07:57→13:36)
[2016-12-11 11:14] LABS: Glucose,Whole Blood 207 mg/dL (75-99)
[2016-12-11] MEDS: TEMOZOLOMIDE 140 MG PO SCH (13:35)
[2016-12-11 14:06] VITALS: BMI 27.1
[2016-12-11 16:21] VITALS: BP 110/45; PULSE 58; TEMP 98.1
== END 2016-12-11 16:55 | disposition home health service (06) | DRG 637 ==
LOC: EC 15:53 → 6ICU 17:24 → 5ONC 12-07 12:16
PROVIDERS: ADMIT Family Medicine; ATTEND Family Medicine
DX: E11.01 Type 2 diabetes mellitus with hyperosmolarity with coma (principal); G93.41 Metabolic encephalopathy; N17.9 Acute kidney failure, unspecified; E87.2 Acidosis; C71.9 Malignant neoplasm of brain, unspecified; E87.1 Hypo-osmolality and hyponatremia; E87.5 Hyperkalemia; E11.22 Type 2 diabetes mellitus with diabetic chronic kidney disease; D72.829 Elevated white blood cell count, unspecified; E86.0 Dehydration; F17.200 Nicotine dependence, unspecified, uncomplicated; F32.9 Major depressive disorder, single episode, unspecified; F41.9 Anxiety disorder, unspecified; I12.9 Hypertensive chronic kidney disease with stage 1 through stage 4 chronic kidney disease, or unspecified chronic kidney disease; N18.9 Chronic kidney disease, unspecified; T38.0X5A Adverse effect of glucocorticoids and synthetic analogues, initial encounter; T45.1X5A Adverse effect of antineoplastic and immunosuppressive drugs, initial encounter; R09.02 Hypoxemia; R26.9 Unspecified abnormalities of gait and mobility; S80.12XA Contusion of left lower leg, initial encounter; Z79.4 Long term (current) use of insulin; Z79.82 Long term (current) use of aspirin; Z79.899 Other long term (current) drug therapy; X58.XXXA Exposure to other specified factors, initial encounter; Y92.9 Unspecified place or not applicable
CPT/HCPCS: 36415; 71010; 71020; 71250; 80051; 80053; 80061; 81003; 82550; 82553; 82565; 82803; 82947; 83036; 83605; 83735; 83880; 84100; 84132; 84439; 84443; 84484; 84520; 85025; 85610; 85730; 87086; 93005; 94640; 94760; 96361; 96365; 96367; 99285

== ENCOUNTER → 2016-12-18 | Outpatient (CLI) | payer MEDICARE ==
[2016-12-18 16:04] LABS: Anisocytosis Slight; CH 30.5; CHCM 34.4; HCT 37.3 % (34.0-46.0); HGB 12.3 gm/dL (11.4-16.0); MCH 29.4 pg (25.0-35.0); MCHC 33.1 g/dL (31.0-37.0); MCV 88.8 fL (80.0-100.0); Mean Platelet Volume 7.9; RDW 16.7 % (11.5-15.5)
[2016-12-18 16:11] LABS: Anion Gap 12 mmol/L; Blood Urea Nitrogen 37 mg/dL (7-17); Calcium 9.5 mg/dL (8.4-10.2); Carbon Dioxide 24 mmol/L (22-30); Chloride 101 mmol/L (98-107); Glucose 168 mg/dL (74-99); Non-African American GFR(MDRD) >60 (>60 ml/min/1.73 sqM); Sodium 137 mmol/L (137-145)
== END | disposition home or self-care (01) ==
LOC: LABWHC1 15:23
PROVIDERS: ATTEND Radiology Radiation Oncology
DX: E87.5 Hyperkalemia (principal)
CPT/HCPCS: 36415; 80048; 85027

== ENCOUNTER → 2016-12-27 | Outpatient (CLI) | payer MEDICARE ==
--- NOTE | 2016-12-27 14:03 | US ---
EXAMINATION TYPE: US venous doppler duplex LE DATE OF EXAM: 12/27/2016 1:40 PM COMPARISON: NONE CLINICAL HISTORY: R22.42 R22.41 Swelling of bilateral lower ext; left leg > right leg; prior left lef t leg artery bypass revascularization SIDE PERFORMED: TECHNIQUE: The lower extremity deep venous system is examined utilizing real time linear array sonog cecy with graded compression, doppler sonography and color-flow sonography. VESSELS IMAGED: Common Femoral Vein Deep Femoral Vein Greater Saphenous Vein * Femoral Vein Popliteal Vein Small Saphenous Vein * Proximal Calf Veins (* superficial vessels) Right Leg: Negative for DVT Left Leg: Echoes are noted at Left Femoral Vein valves, otherwise leg is negative for DVT; complex e longated fluid collection noted medial calf and size = 9.6 x 3.1 x 0.9cm. IMPRESSION: 1. Nonobstructing thrombus may be near the left femoral vein valves. Color flow appears preserved wit hout obstruction. 2. Right lower extremity negative for deep venous thrombosis. 3. Calf cyst versus hematoma
== END | disposition home or self-care (01) ==
LOC: RADUSWWP 12:11
PROVIDERS: ATTEND Internal Medicine Hematology & Oncology
DX: R22.41 Localized swelling, mass and lump, right lower limb (principal); R22.42 Localized swelling, mass and lump, left lower limb
CPT/HCPCS: 93970

== ENCOUNTER → 2017-01-24 | Outpatient (CLI) | payer MEDICARE ==
--- NOTE | 2017-01-24 12:44 | MR ---
EXAMINATION TYPE: MR brain wo/w con DATE OF EXAM: 01/24/2017 COMPARISON: 11/20/2016 HISTORY: malignant neoplasm of parietal lobe TECHNIQUE: Multiplanar, multisequence images of the brain and brainstem is performed without and with IV contras t, utilizing 7 mL intravenous Gadavist . FINDINGS: Diffusion weighted images demonstrate abnormal signal within the right parietal lesion with some with heterogeneous signal. Postoperative changes of right-sided craniotomy with resection of neoplasm noted. Dural based enhancement along the craniotomy margins is stable and most likely postoperative. Small e xtra-axial collection not excluded but would be stable from prior exam. The overall size of the lesion appears similar measuring approximately 2.5 cm. This is deep to the du ra within the substance of the brain and was noted on the previous exam and contains complex heteroge neous signal. Some of which may represent blood products. The area of abnormal signal on FLAIR and T2 along the resection cavity likely represents areas of residual vasogenic edema. On today's exam no s ignificant midline shift. However, there is increased peripheral enhancement around the lesion on today's exam relative to the prior exam. Residual neoplasm in the differential diagnosis. No additional enhancing lesions are seen. Nonspecific white matters changes are noted bilaterally. Ch anges of chronic sinusitis noted. Area of abnormal signal involving the maria is suggestive of remote ischemic change. Craniocervical junction is maintained. Sella turcica has a normal appearance. No cerebellopontine ang le mass seen. IMPRESSION: 1. The size of the right parietal cavity appears to be stable but there is increasing enhancement jagdeep ng the peripheral margin which is a suspicious finding for neoplastic process. Enhancement is ill-def ined along the inferior anterior margin. Component of infiltrating or residual neoplasm in the differ ential diagnosis. Correlate clinically.
== END | disposition home or self-care (01) ==
LOC: RADMRIMAIN 11:33
PROVIDERS: ATTEND Radiology Radiation Oncology
DX: C71.3 Malignant neoplasm of parietal lobe (principal)
CPT/HCPCS: 70553; A9581

== ENCOUNTER → 2017-04-14 | Outpatient (CLI) | payer MEDICARE ==
--- NOTE | 2017-04-14 14:09 | MR ---
EXAMINATION TYPE: MR brain wo/w con DATE OF EXAM: 04/14/2017 COMPARISON: 01/24/2017 HISTORY: History of surgical resection of right parietal lobe for GBM. History of primary lung carcin shelby. TECHNIQUE: Multiplanar, multisequence images of the brain and brainstem is performed without and with IV contras t, utilizing 6.5 mL intravenous Gadavist . FINDINGS: There is a crescentic area of restricted diffusion anterior and medial resection cavity. No additional sites of restricted diffusion are seen. No territorial areas of restricted diffusion are seen to indicate infarct. Although the resection cavity remains approximately the same size measuring approximately 2.5 cm the degree of T2/FLAIR hyperintense white matter change surrounding this representing encephalomalacia, n eoplasm, residual vasogenic edema, or post therapy change has increased now involving the majority th e right parietal lobe in the subcortical and periventricular white matter. Extra-axial fluid collecti on is similar to the prior measuring 5 mm in greatest thickness deep to the craniotomy changes of the right posterior parietal lobe. Separate from the thin overall smoothly enhancing resection cavity, beginning at the anterior margin of the resection cavity there is an area of enhancement suspicious for recurrent/residual neoplasm me asuring 2.7 x 2.3 x 2.8 cm within the right parietal lobe. Given this finding the previously describe d T2/FLAIR hyperintensity likely relates to vasogenic edema from this tumor. This area of enhancement was more ill-defined on the prior examination and do not appear masslike. Additional satellite adjac ent area of enhancement measures 5 mm also within the parietal lobe on T1 nonfat sat postcontrast jennifer ge 58. The ventricular system and cisternal spaces are normal in size and appearance other than mild ex vacu o dilatation of the posterior horn of the right lateral ventricle. The brain volume is age appropria te. Midline structures demonstrate normal morphology. The craniocervical junction appears within normal limits. The globes are intact. Minimal mucosal thickening is seen within the ethmoid sinuses. Remaini ng paranasal sinuses and mastoid air cells are well aerated. IMPRESSION: 1. New intraparenchymal mass measuring up to 2.8 cm with surrounding vasogenic edema beginning at the anterior margin of the resection cavity within the parietal lobe. This is highly suspicious for recu rrence of the previous resected glioblastoma multiforme. Additional 5 mm nodular area of enhancement is present adjacent to the index mass within the parietal lobe. 2. Smooth enhancement of the resection cavity without current evidence of residual or recurrent disea se within the resection cavity. 3. Similar appearing postsurgical extra-axial fluid collection deep to the craniotomy site without mi dline shift.
== END | disposition home or self-care (01) ==
LOC: RADMRIMAIN 11:58
PROVIDERS: ATTEND Radiology Radiation Oncology
DX: C71.3 Malignant neoplasm of parietal lobe (principal); G93.89 Other specified disorders of brain; Z98.890 Other specified postprocedural states
CPT/HCPCS: 82565; 70553; A9581

== ENCOUNTER 2017-04-18 19:37 | Emergency (ER) | payer MEDICARE, OTHER ==
[2017-04-18 19:56] VITALS: RESP 18
--- NOTE | 2017-04-18 20:49 | XR ---
Left shoulder HISTORY: Trauma and pain 3 views of the left shoulder There is acromioclavicular joint arthropathy. Bone mineralization and alignment are maintained. Left lung apex as visualized is normal. IMPRESSION: No acute fracture or dislocation evident
--- NOTE | 2017-04-18 20:51 | XR ---
Lumbosacral spine HISTORY: Trauma and pain 5 views of the lumbosacral spine There is a levoscoliosis centered at L3. Lumbar vertebral bodies show preserved height and alignment. No evident spondylolysis or spondylolisthesis. Bone mineralization is reduced. Some mild loss of dis c height at the intervertebral levels. Sclerosis present in the posterior elements of the lower lumba r spine. Infrarenal abdominal aorta a be aneurysmal. There are dense atherosclerotic calcifications. IMPRESSION: Degenerative disc disease, osteopenia, facet arthropathy. Possible abdominal aortic aneur ysm, follow-up nonemergent exam recommended.
--- NOTE | 2017-04-18 20:53 | XR ---
EXAMINATION TYPE: XR Hip LT and AP Pelvis DATE OF EXAM: 04/18/2017 COMPARISON: NONE HISTORY: Trauma and pain TECHNIQUE: A single AP view of the pelvis is obtained. Two views of the left hip are obtained. FINDINGS: There is no acute fracture/dislocation evident in the pelvis. The hip and sacroiliac join ts appear symmetric and unremarkable. The overlying soft tissue appears unremarkable. Two views of left hip show no acute fracture or dislocation. No focal lytic or sclerotic lesion seen in the proximal left femur. Vascular calcifications are present within the pelvis. The overlying sof t tissue is unremarkable. IMPRESSION: There is no acute fracture or dislocation in the pelvis or left hip.
[2017-04-18] MEDS ORDERED: HYDROcodone/APAP 5-325MG 1 EACH TAB PO STA (21:18)
--- NOTE | 2017-04-18 21:44 | ED ---
General Adult HPI - General Chief complaint: Weakness Stated complaint: Pain Nausea (Ca patient) Time Seen by Provider: 04/18/17 19:53 Source: patient, family, EMS, RN notes reviewed, old records reviewed Mode of arrival: EMS Limitations: no limitations - History of Present Illness Initial comments: Chief complaint history of present illness this is a 66-year-old female who had a fall at home. The patient has a history of glioblastoma. She reports she fell injuring her left shoulder left hip and lumbar spine. No loss of consciousness no head or neck pain. - Related Data Home Medications Medication Instructions Recorded Confirmed ALPRAZolam [Xanax] 0.5 mg PO HS 12/05/16 04/18/17 Acetaminophen [Tylenol] 650 mg PO QID PRN 12/05/16 04/18/17 Aspirin [Adult Low Dose Aspirin EC] 81 mg PO DAILY 12/05/16 04/18/17 Atorvastatin [Lipitor] 20 mg PO HS 12/05/16 04/18/17 Citalopram Hydrobromide [CeleXA] 20 mg PO DAILY 12/05/16 04/18/17 Cyanocobalamin [Vitamin B-12] 500 mcg PO DAILY 12/05/16 04/18/17 Dexamethasone 4 mg PO Q8H 12/05/16 04/18/17 Hydrocodone/Acetaminophen [[place] 1 tab PO Q8H PRN 12/05/16 04/18/17 7.5-325] Pantoprazole [Protonix] 40 mg PO DAILY 12/05/16 04/18/17 Thyroid,Pork [[place] Thyroid] 60 mg PO DAILY 12/05/16 04/18/17 Valsartan 80 mg PO TID 12/05/16 04/18/17 amLODIPine [Norvasc] 5 mg PO DAILY 12/05/16 04/18/17 Docusate [Colace] 100 mg PO BID PRN 04/18/17 04/18/17 Famotidine [Pepcid AC] 10 mg PO DAILY PRN 04/18/17 04/18/17 Furosemide [Lasix] 20 mg PO DAILY 04/18/17 04/18/17 Insulin Glargine [Lantus] 24 unit SQ DAILY 04/18/17 04/18/17 Loperamide [Imodium] 4 mg PO QID PRN 04/18/17 04/18/17 Prochlorperazine [Compazine] 10 mg PO Q6H PRN 04/18/17 04/18/17 Vitamin C/Biotin [Hair, Skin and 1 tab PO DAILY 04/18/17 04/18/17 Nails] metFORMIN HCL [Glucophage] 500 mg PO BID 04/18/17 04/18/17 tiZANidine HCL [Zanaflex] 4 - 8 mg PO Q8HR PRN 04/18/17 04/18/17 Allergies Allergy/AdvReac Type Severity Reaction Status Date / Time No Known Allergies Allergy Verified 04/18/17 20:05 Review of Systems ROS Statement: Those systems with pertinent positive or pertinent negative responses have been documented in the HPI. Review of systems. The patient's denying any headache or neck pain. She does have a history of glioblastoma. MRI done recently shows that it appears as though is reoccurring. The patient reports that she had a slip and fall at home in her bathroom after standing up. Lost her balance. Complains of pain to her left shoulder left hip and lumbosacral area. All systems reviewed. Past medical problems significant for glioblastoma multi-forming, insulin diabetes mellitus, hypertension and glioblastoma. The patient's surgeries include hysterectomy, brain surgery and a clot removed from her left leg and lung. Family history noncontributory. No known ALLERGIES. ROS Other: All systems not noted in ROS Statement are negative. Past Medical History Past Medical History: Cancer, Diabetes Mellitus, Hypertension Additional Past Medical History / Comment(s): glioblastoma diagnosed September 2016. History of Any Multi-Drug Resistant Organisms: None Reported Past Surgical History: Hysterectomy Additional Past Surgical History / Comment(s): blood clot removal from left leg October 2016. brain surgery October 09 2016 Past Anesthesia/Blood Transfusion Reactions: No Reported Reaction Past Psychological History: Anxiety Smoking Status: Current some day smoker Past Alcohol Use History: None Reported Past Drug Use History: None Reported General Exam - General Exam Comments Initial Comments: General: The patient is awake and alert, playing a discomfort after having a fall. See chief complaint. Vital signs show temperature 97.0 pulse 70 respiratory rate 18 pulse ox 99% room air blood pressure 133/60 Eye: Pupils are equal, extra-ocular movements are intact; there is normal conjunctiva bilaterally. No signs of icterus. Ears, nose, mouth and throat: There are moist mucous membranes Neck: The neck is supple, there is no tenderness on no complaint of head or neck pain. Cardiovascular: There is a regular rate and rhythm. No complaint of chest wall pain. Respiratory: Lungs are clear to auscultation, respirations are non-labored, breath sounds are equal Gastrointestinal: Soft, non-distended, non-tender abdomen Back: There is no tenderness to palpation in the midline. There is no obvious deformity. No rashes noted. Able to roll in bed to demonstrate area discomfort to her lumbar spine. No bruising noted. Musculoskeletal: All range of motion of fingers wrists elbows arms and shoulders and hips. Neurovascular status to extremities intact. Neurological: No evidence of any focal or lateralizing findings. Skin: Skin is warm and dry and no rashes or lesions are noted. Limitations: no limitations Course Vital Signs 04/18/17 04/18/17 19:53 21:16 Temperature 97.9 F Pulse Rate 68 70 Respiratory 18 18 Rate Blood Pressure 137/84 133/60 O2 Sat by Pulse 99 99 Oximetry Medical Decision Making - Medical Decision Making Decision making; the patient's here because she had a fall while in her bathroom reaching for her walker. The patient reports she did not bump her head or hurt her neck. X-rays were taken and reviewed. Trays of the left shoulder, left hip pelvis and lumbar spine were reviewed by radiologist his report is at all negative no acute bony irregularities. He did mention that she may have an aneurysm and this did to be looked at as an outpatient. She received [place] at her request. The plan patient be discharged to care of her daughter. She's been advised to change positions slowly as this may cause vasovagal syncope. Plus the fact the patient does have recurring glioblastoma. Disposition Clinical Impression: Fall Disposition: HOME SELF-CARE Condition: Stable Instructions: Fall Prevention for Older Adults (ED), Fall Prevention (ED) Additional Instructions: HEENT positions slowly especially after having bowel movements. Continue with home medications follow-up family physician and oncologist Referrals: Arnoldo Barrera MD [Primary Care Provider] - 1-2 days Time of Disposition: 21:49
[2017-04-18 22:05] VITALS: BP 142/66; PULSE 67; TEMP 98.1
== END 2017-04-18 22:03 | disposition home or self-care (01) ==
LOC: EC 19:37
DX: S49.92XA Unspecified injury of left shoulder and upper arm, initial encounter (principal); S79.912A Unspecified injury of left hip, initial encounter; S39.92XA Unspecified injury of lower back, initial encounter; E11.9 Type 2 diabetes mellitus without complications; I10 Essential (primary) hypertension; F41.9 Anxiety disorder, unspecified; F17.200 Nicotine dependence, unspecified, uncomplicated; Z85.841 Personal history of malignant neoplasm of brain; Z79.82 Long term (current) use of aspirin; Z79.4 Long term (current) use of insulin; Z79.899 Other long term (current) drug therapy; W19.XXXA Unspecified fall, initial encounter; Y92.009 Unspecified place in unspecified non-institutional (private) residence as the place of occurrence of the external cause
CPT/HCPCS: 72110; 73502; 99285